=== PATIENT | female | born 1965 | race Caucasian/White ===

== ENCOUNTER → 2017-08-15 | Day surgery (SDC) | payer BC ==
[2017-07-29 07:22] VITALS: Ht 160 cm; Wt 88.6 kg
[~2017-08-15] VITALS: Ht 160 cm; Wt 88.6 kg
[~2017-08-15] MED LIST: ASPI-589 PO; ATROPINE SULFATE 0.1 MG/ML 5ML SYR IV PRN; CEFAZOLIN 2000MG IV PUSH 15 ML IV SCH; CHOL2000 PO; CRS/10 PO; DEXAMETHASONE SOD INJ 4 MG/ML VIAL ONE; EpHEDrine SULFATE INJ 50 MG/ML AMP IV PRN; FENTANYL CITRATE INJ 50 MCG/1 ML 2 ML VIAL IV PRN; FENTANYL CITRATE INJ 50 MCG/1 ML 2 ML VIAL ONE; FEXO1TAB49 PO; FMV500 PO; KETOROLAC TROMETHAMINE 30 MG/ML VIAL IV. PRN; LACTATED RINGER'S 1000ML 1,000 ML IV SCH; LIDOCAINE HCL 2% 2 ML VIAL (20MG/ML) ONE; LIDOCAINE HCL 2% LOCAL 20 ML VIAL ONE; MAGN1TAB19 PO; MELO-83 PO; MIDAZOLAM HCL 1 MG/ML 2ML VIAL ONE; MONT1TAB3 PO; ONDANSETRON INJ 2 MG/ML 2 ML VIAL IV PRN; ONDANSETRON INJ 2 MG/ML 2 ML VIAL ONE; PROB1TAB16 PO; PROPOFOL IV EMULSION 10 MG/ML 20 ML VIAL IV ONE; SODIUM CHLORIDE 0.9% 1000ML 1,000 ML IV SCH; SPIR50TA2 PO; SULF800T23 PO; TRAM-10 PO; TRAMADOL HCL 50 MG TAB PO PRN
--- NOTE | 2017-08-15 09:36 | History & Physical Bridge Note ---
H&P Re-Evaluation Bridge Note: I have examined the patient, reviewed the History & Physical and in the interval since the performance of the History & Physical I have noted the following changes of clinical significance: No changes noted
--- NOTE | 2017-08-15 11:02 | [facility] Post Operative Brief Note ---
Immediate Operative Summary Operative Date Aug 15, 2017. Pre-Operative Diagnosis Left Carpal Tunnel Syndrome; Right Long Trigger Finger Post-Operative Diagnosis Same Procedure(s) Performed Left Carpal Tunnel Release; Right Long Trigger Finger Release Surgeon Dr. Cesar Security Architect Surgeon(s) Samy Lindsey PA-C Estimated Blood Loss 5cc Findings Consistent with Post-Op Diagnosis Specimens None Drains None Anesthesia Type MAC Complication(s) none Disposition Disposition: Recovery Room / PACU
[2017-08-15 11:22] VITALS: TEMP 36.2
--- NOTE | 2017-08-15 11:30 | Discharge Instructions-SurgCtr ---
Discharge Instructions Date of Service Aug 15, 2017. Visit Reason for Visit: Left Carpal Tunnel Syndrome; Right Long Trigger Fi Discharge Discharge Diagnosis / Problem: SAME ABOVE Discharge Goals Goal(s): Decrease discomfort, Improve function Medications Stopped Medications Name(s): Meloxicam, last dose 08/05/17, asprin 81mg daily, last dose 08/14/17 Restart Stopped Medication(s): MAY RESTART 08/16/2017 Activity Recommendations Activity Limitations: as noted below Shower/Bathe: may shower/bathe in 3 days Anesthesia . Post Anesthesia Instructions: If you have had General Anesthesia or IV Sedation: * Do not drive today. * Resume driving when surgeon permits. * Do not make important decisions or sign legal documents today. * Call surgeon for: 1. Temperature elevations greater than 101 degrees F. 2. Uncontrollable pain. 3. Excessive bleeding. 4. Persistent nausea and vomiting. 5. Medication intolerance (nausea, vomiting or rash). * For nausea and vomiting use only clear liquids such as: tea, soda, bouillon until nausea subsides, then gradually increase diet as tolerated. * If you have any concerns or questions, call your surgeon's office. If physician is unavailable and it is an emergency, call 911 or go to the nearest emergency room. . Instructions / Follow-Up Instructions / Follow-Up MEDICATIONS: * Resume previous medications unless instructed otherwise by your surgeon. * Always take pain medication on a full stomach or with food to avoid upset stomach. * Do not drink alcohol or drive while taking narcotics. * Ibuprofen or Tylenol may be taken if narcotic not needed. SPECIAL CARE INSTRUCTIONS: __ None _X_ Keep extremity elevated and iced x 48 hours; apply ice 20-30 minutes 8-10 times/day. May remove at night. __ Sling __24 hrs/day __ Remove at night __ Shoulder Immobilizer __ 24 hrs/day __ Remove at night _X_ Dressing __ Maintain until seen in office, may shower with plastic over site _X_ Remove dressings in 72 hours and then may shower _X_ Cover incisions with band-aids after showering __ Do not remove steri-strips Call physician if chills or temperature rises above 102 degrees or pain unrelieved by prescribed pain medications at . . Diet Recommendations Home Diet: no limitations Fluid Restriction: None Procedures Procedures Performed: Left Carpal Tunnel Release; Right Long Trigger Finger Release Pending Studies Studies pending at discharge: no Work Instructions Return To Work: after follow-up Medical Emergencies . Who to Call and When: Medical Emergencies: If at any time you feel your situation is an emergency, please call 911 immediately. . Non-Emergent Contact Non-Emergency issues call your: Primary Care Provider Call Non-Emergent contact if: you have a fever, temperature is above 101.5 . . "Provider Documentation" section prepared by Hiren Lindsey. .
[2017-08-15 11:48] VITALS: BP 168/88; PULSE 78; O2SAT 98
--- NOTE | 2017-08-15 11:52 | Anesthesia Progress Nt - [facility] ---
Anesthesia Post Op Note Date & Time Aug 15, 2017 at 11:52 Vital Signs Pain Intensity: 0 Vital Signs Past 12 Hours Date Time Temp Pulse Resp B/P (MAP) Pulse Ox O2 Delivery O2 Flow Rate FiO2 08/15/17 11:22 36.2 91 12 166/85 (112) 95 Room Air 08/15/17 09:56 36.6 81 18 159/80 (106) 97 Room Air Notes Mental Status: alert / awake / arousable, participated in evaluation Pt Amnestic to Procedure: Yes Nausea / Vomiting: adequately controlled Pain: adequately controlled Airway Patency, RR, SpO2: stable & adequate BP & HR: stable & adequate Hydration State: stable & adequate Anesthetic Complications: no major complications apparent
--- NOTE | 2017-08-15 16:22 | OPERATIVE REPORT ---
DATE OF OPERATION: 08/15/2017 PREOPERATIVE DIAGNOSIS: Carpal tunnel syndrome of the left wrist and triggering of the right long finger. POSTOPERATIVE DIAGNOSIS: Same. PROCEDURE: Left open carpal tunnel release and a right trigger finger release. SURGEON: Dr. Say Cesar. SPLIT LEATHER DEPARTMENT SUPERVISOR: Mayur Lindsey PA-C, whose assistance was necessary for retraction and closure. ANESTHESIA: Local with sedation. COMPLICATIONS: None. CONDITION: Stable to PACU. INDICATIONS: Jami is a pleasant 51-year-old female who is complaining of numbness in her left hand and triggering of her right long finger. EMG and clinical examination were diagnostic for carpal tunnel syndrome of the left wrist. Clinical examination was diagnostic for a trigger finger of the right long finger. After failing conservative treatment, she elected to undergo releases. OPERATION AND FINDINGS: On 08/15/2017 she arrived at [facility] for the above procedure. She was seen in preoperative holding area and the operative extremity was identified and signed. She was given a preoperative antibiotic, taken back to the operating room, laid on the table in supine position and given basic sedation. Both hands were then prepped and draped in sterile fashion. Time-out was done and the patient's operative extremity was properly identified. The carpal tunnel was done first. A longitudinal incision was made directly over the transverse carpal ligament. Dissection was taken down through the fascia with care not to disrupt the palmar cutaneous branch or the motor branch of the median nerve. The transverse carpal ligament was easily identified. A knife and tenotomy scissors were used to completely release the transverse carpal ligament. Complete resection was checked both proximally and distally. The wound was then irrigated, closed with 4-0 nylon suture. She was then placed in a soft dressing. Attention was then turned to the trigger finger on the left hand. A longitudinal incision was made directly over the A1 adriano. Dissection was taken down through the fascia with care not to disrupt the neurovascular structures. The A1 adriano was easily visualized. A knife and tenotomy scissors were then used to completely release the A1 adriano. The tendon was pulled out of the wound to ensure complete resection. The wound was then irrigated, closed with 4-0 nylon suture. She was placed in a soft dressing and taken to the post-anesthesia care unit in stable condition. She tolerated the procedure well. I attest to the content of the Intraoperative Record and any orders documented therein. Any exception s are noted below.
== END | disposition home or self-care (01) ==
LOC: X.SURG 09:40
PROVIDERS: ATTEND Orthopaedic Surgery
DX: G56.02 Carpal tunnel syndrome, left upper limb (principal); M65.331 Trigger finger, right middle finger; I34.1 Nonrheumatic mitral (valve) prolapse; E78.00 Pure hypercholesterolemia, unspecified; G62.9 Polyneuropathy, unspecified; Z82.49 Family history of ischemic heart disease and other diseases of the circulatory system; Z82.3 Family history of stroke; Z83.3 Family history of diabetes mellitus

== ENCOUNTER 2021-06-08 11:39 | Inpatient (IN) ==
[2021-06-08 12:24] LABS: Hematocrit (blood only) 47.6 % (37-47); Hemoglobin 15.9 g/dL (12.0-16.0); Mean Corpuscular Hemoglobin 31.9 pg (25-34); Mean Corpuscular Hgb Conc 33.4 g/dL (32-36); Mean Corpuscular Volume 95.6 fL (80-100); Mean Platelet Volume 10.4 fL (7.4-10.4); Platelet Count 254 K/uL (130-400); RDW Coefficient of Variation 12.9 % (11.5-14.5); Red Blood Count 4.98 M/uL (4.2-5.4); White Blood Count 9.98 K/uL (4.8-10.8)
[2021-06-08 12:45] LABS: BUN Creatinine Ratio 16.3 (10-20); Calcium 9.6 mg/dl (8.5-10.1); Est GFR (African American) 74.7 ml/min; Est GFR (Non-African American) 64.5 ml/min; Potassium 3.8 mmol/L (3.5-5.1)
[2021-06-08] MEDS ORDERED: ACETAMINOPHEN 1,000 MG/100 ML VIAL IV STA (12:45)
[2021-06-08] MEDS ORDERED: SODIUM CHLORIDE 0.9% 1000ML 1,000 ML IV ONE ×2 (12:45→15:13)
--- NOTE | 2021-06-08 12:47 | Emergency Department Note ---
History of Present Illness General Chief complaint: Illness Stated complaint: COVID +,BACK PAIN,OUT OF IT TODAY Time Seen by Provider: 06/08/21 12:35 Source: patient Mode of arrival: ambulatory Limitations: no limitations History of Present Illness Provider complaint: Back pain, chills Onset (ago): day(s) 1 Maximum Pain Intensity: 10 Exacerbated By: + none Associated symptoms: + cough, + fever/chills, + headaches, + loss of appetite, + malaise and + nausea/vomiting; no chest pain or no shortness of breath Treatments prior to arrival: none This is a 55-year-old female presents emergency department complaining of back pain and chills. Patient states she started to develop back pain and shaking chills overnight. She denies any accompanying fevers. Patient states she has had a cough since Saturday and initially thought it was a side effect of her blood pressure medication. Patient states she recently started lisinopril 2 weeks ago. Patient states her son tested positive for Covid on Saturday. She took a home test today and was positive also. Patient states she did have accompanying nausea and vomiting. States her cough is minimally productive and denies overt chest pain or shortness of breath. Patient states she does have some lower abdominal pain. Patient states she has previously had a kidney infection and had significant back pain with that. Patient states she is been unable to find a comfortable position regarding her pain. No radiation of the pain into her hips, buttock, or lower extremity. Patient denies noting any change in her urine recently to suggest an evolving urinary tract infection. Patient states she did have some mild diarrhea today. Pt seen during a time of high acuity and national emergency pandemic while wearing PPE. Home Medications Medication Instructions Recorded Confirmed Type aspirin 81 mg tablet,delayed 81 mg PO DAILY 02/13/21 06/08/21 History release (Adult Low Dose Aspirin) coenzyme Q10 75 mg capsule (Ultra 75 mg PO DAILY 02/13/21 06/08/21 History CoQ10) fexofenadine 180 mg tablet 180 mg PO DAILY 02/13/21 06/08/21 History (Adenike Allergy) magnesium hydroxide 400 mg (170 mg 400 mg PO DAILY 02/13/21 06/08/21 History magnesium) chewable tablet meloxicam 15 mg tablet (Mobic) 15 mg PO DAILY 02/13/21 06/08/21 History metformin 500 mg tablet 500 mg PO DAILY 02/13/21 06/08/21 History pravastatin 20 mg tablet 20 mg PO DAILY 02/13/21 06/08/21 History spironolactone 25 mg tablet 25 mg PO DAILY 02/13/21 06/08/21 History cholecalciferol (vitamin D3) 25 25 mcg PO DAILY 06/08/21 06/08/21 History mcg (1,000 unit) capsule (Vitamin D3) famciclovir 250 mg tablet 250 mg PO BID 06/08/21 06/08/21 History lisinopril 2.5 mg tablet 2.5 mg PO DAILY 06/08/21 06/08/21 History losartan 25 mg tablet 25 mg PO DAILY 06/08/21 06/08/21 History Allergies Allergy/AdvReac Type Severity Reaction Status Date / Time codeine AdvReac Intermediate VOMITING Verified 06/08/21 14:57 hydrocodone AdvReac Unknown NAUSEA Verified 06/08/21 15:04 Past Med/Surg History Social History Smoking Status: Never smoker Hx Alcohol Use: No Hx Substance Use: No Preferred Language: [place] Communication Ability: Effective Passenger Service Manager Required: No Beliefs That Will Affect Care: None Current Living Situation: Spouse Feels Safe at Home: Yes Assistive Devices: None Review of Systems A total of 10 systems reviewed and were otherwise negative All systems reviewed & are unremarkable except as noted in HPI & below Physical Exam Vital Signs Vital Signs - 24 hr 06/08/21 11:46 06/08/21 15:53 Temperature 36.3 C L 37.7 C H Temperature Source Temporal Artery Scan Oral Pulse Rate 71 Pulse Rate [Apical] 120 H Respiratory Rate 20 26 H Respiratory Effort / Characteristics Non-Labored Spontaneous Respiratory Depth Normal Respiratory Pattern Regular Blood Pressure 190/102 H Blood Pressure [Left Arm] 143/68 H Blood Pressure Mean 131 Blood Pressure Mean [Left Arm] 93 Pulse Oximetry 99 98 Oxygen Delivery Method Room Air Room Air Sepsis Recent Fever Within 48 Hours No Sepsis New/Unexplained Change in Mental Status No Sepsis Action Taken by Nursing No Action Required GENERAL: alert, ill appearing, well nourished, no distress, non-toxic, obvious rigors EYE EXAM: normal conjunctiva, PERRL and EOM's grossly intact OROPHARYNX: no exudate, no erythema, lips, buccal mucosa, and tongue normal and mucous membranes are dry NECK: supple, no nuchal rigidity, no adenopathy, non-tender LUNGS: Clear to auscultation. Normal chest wall mechanics, no w/r/r HEART: no murmurs, S1 normal and S2 normal ABDOMEN: abdomen soft, non-tender, normo-active bowel sounds, no masses, no rebound or guarding. BACK: Back is symmetrical on inspection and there is no deformity, no midline tenderness, no CVA tenderness. Pain to right lateral low back. SKIN: no rashes and no bruising UPPER EXTREMITIES: upper extremities are grossly normal. FROM, nml pulses b/l. LOWER EXTREMITIES: No pitting edema. FROM, nml pulses b/l. NEURO EXAM: Normal sensorium, cranial nerves II-XII grossly intact, normal speech, no gross weakness of arms, no gross weakness of legs. Gross sensation intact. Course Course 1522: Pt updated on results. HR 123, BP stable. Still having pain. 1602: DIscussed with Dr. Mcnamara. 1622: Discussed with Dr. Prabhakar. 1644: Updated pt's Maxim via phone per patient request. [phone] Administered Medications Enoxaparin Sodium (Enoxaparin Inj 30 Mg/0.3 Ml Syr) 30 mg SQ Q24H [facility] Stop: 07/08/21 17:59 Last Admin: 06/08/21 18:54 Dose: 30 mg Documented by: [id number] Hydromorphone HCl (Hydromorphone Inj 0.5 Mg/0.5 Ml Syr) 0.5 mg IV Q2H PRN PRN Reason: Moderate Pain (4,5,6) on NRS Stop: 06/22/21 17:30 Last Admin: 06/10/21 01:51 Dose: 0.5 mg Documented by: [id number] Admin: 06/09/21 06:52 Dose: 0.5 mg Documented by: [id number] Admin: 06/08/21 21:08 Dose: 0.5 mg Documented by: [id number] Parenteral Electrolytes (Normosol-R) 1,000 mls @ 200 mls/hr IV .Q5H [facility] Stop: 07/08/21 16:59 Last Admin: 06/10/21 04:36 Dose: 200 mls/hr Documented by: [id number] Infusion: 06/10/21 04:08 Dose: 200 mls/hr Documented by: [id number] Admin: 06/10/21 01:55 Dose: Not Given Documented by: [id number] Admin: 06/09/21 23:08 Dose: 200 mls/hr Documented by: [id number] Infusion: 06/09/21 22:23 Dose: 200 mls/hr Documented by: [id number] Admin: 06/09/21 17:23 Dose: 200 mls/hr Documented by: [id number] Infusion: 06/09/21 17:23 Dose: 200 mls/hr Documented by: [id number] Admin: 06/09/21 12:56 Dose: 200 mls/hr Documented by: [id number] Infusion: 06/09/21 12:56 Dose: 0 mls/hr Documented by: [id number] Admin: 06/09/21 05:19 Dose: 125 mls/hr Documented by: [id number] Infusion: 06/09/21 05:08 Dose: 125 mls/hr Documented by: [id number] Admin: 06/08/21 21:08 Dose: 125 mls/hr Documented by: [id number] Acetaminophen (Ofirmev) 1,000 mg in 100 mls @ 400 mls/hr IV Q8H PRN PRN Reason: Fever/Mild Pain (Pain 1,2,3) Stop: 06/11/21 17:30 Last Infusion: 06/10/21 02:47 Dose: 0 mls/hr Documented by: [id number] Admin: 06/10/21 02:28 Dose: 400 mls/hr Documented by: [id number] Infusion: 06/09/21 19:30 Dose: 0 mls/hr Documented by: [id number] Admin: 06/09/21 18:51 Dose: 400 mls/hr Documented by: [id number] Ceftriaxone Sodium 2,000 mg/ (Dextrose) 70 mls @ 100 mls/hr IV Q24H [facility]; Protocol Stop: 06/17/21 16:41 Last Infusion: 06/09/21 18:11 Dose: 0 mls/hr Documented by: [id number] Admin: 06/09/21 17:24 Dose: 100 mls/hr Documented by: [id number] Lisinopril (Lisinopril 2.5 Mg Tab) 2.5 mg PO DAILY [facility] Stop: 07/09/21 08:59 Last Admin: 06/09/21 08:15 Dose: Not Given Documented by: [id number] Losartan Potassium (Losartan Potassium 25 Mg Tab) 25 mg PO DAILY [facility] Stop: 07/09/21 08:59 Last Admin: 06/09/21 08:15 Dose: Not Given Documented by: [id number] Pravastatin Sodium (Pravastatin Sod 20 Mg Tab) 20 mg PO DAILY [facility] Stop: 07/09/21 08:59 Last Admin: 06/09/21 08:15 Dose: 20 mg Documented by: [id number] Discontinued Medications Fentanyl Citrate (Fentanyl Citrate 100 Mcg/2 Ml Vial) 50 mcg IV Q15M PRN PRN Reason: Pain Stop: 06/22/21 15:23 Last Admin: 06/08/21 17:02 Dose: 50 mcg Documented by: [id number] Acetaminophen (Ofirmev) 1,000 mg in 100 mls @ 400 mls/hr IV NOW STA Stop: 06/08/21 12:59 Last Infusion: 06/08/21 16:43 Dose: 0 mls/hr Documented by: [id number] Admin: 06/08/21 12:58 Dose: 400 mls/hr Documented by: [id number] Sodium Chloride (Nss 1000ml) 1,000 mls @ 999 mls/hr IV .Q1H1M ONE Stop: 06/08/21 13:45 Last Infusion: 06/08/21 16:43 Dose: 0 mls/hr Documented by: [id number] Admin: 06/08/21 12:58 Dose: 999 mls/hr Documented by: [id number] Sodium Chloride (Nss 1000ml) 1,000 mls @ 999 mls/hr IV .Q1H1M ONE Stop: 06/08/21 16:13 Last Infusion: 06/08/21 16:59 Dose: 0 mls/hr Documented by: [id number] Admin: 06/08/21 15:56 Dose: 999 mls/hr Documented by: [id number] Ceftriaxone Sodium (Rocephin) 2,000 mg in 70 mls @ 140 mls/hr IV NOW STA Stop: 06/08/21 15:51 Last Infusion: 06/08/21 16:43 Dose: 0 mls/hr Documented by: [id number] Admin: 06/08/21 15:56 Dose: 140 mls/hr Documented by: [id number] Parenteral Electrolytes (Normosol-R) 1,000 mls @ 999 mls/hr IV .Q1H1M ONE Stop: 06/08/21 17:56 Last Infusion: 06/08/21 20:08 Dose: 0 mls/hr Documented by: [id number] Admin: 06/08/21 18:54 Dose: 999 mls/hr Documented by: [id number] Parenteral Electrolytes (Normosol-R) 500 mls @ 999 mls/hr IV .Q31M ONE Stop: 06/08/21 19:22 Last Infusion: 06/08/21 20:44 Dose: 0 mls/hr Documented by: [id number] Admin: 06/08/21 20:02 Dose: 999 mls/hr Documented by: [id number] Parenteral Electrolytes (Normosol-R) 500 mls @ 999 mls/hr IV .Q31M ONE Stop: 06/08/21 19:53 Last Infusion: 06/08/21 20:44 Dose: 0 mls/hr Documented by: [id number] Admin: 06/08/21 20:02 Dose: 999 mls/hr Documented by: [id number] Parenteral Electrolytes (Normosol-R) 1,000 mls @ 999 mls/hr IV .Q1H1M ONE Stop: 06/09/21 10:07 Last Infusion: 06/09/21 10:31 Dose: 0 mls/hr Documented by: [id number] Admin: 06/09/21 09:28 Dose: 999 mls/hr Documented by: [id number] Sodium Chloride (Nss 1000ml) 500 mls @ 999 mls/hr IV .Q31M ONE Stop: 06/09/21 09:40 Last Admin: 06/09/21 09:25 Dose: Not Given Documented by: [id number] Magnesium Sulfate/Dextrose (Magnesium Sulfate / D5w) 1 gm in 100 mls @ 50 mls/hr IV Q2H [facility] Stop: 06/09/21 13:44 Last Infusion: 06/09/21 15:01 Dose: 0 mls/hr Documented by: [id number] Admin: 06/09/21 12:57 Dose: 50 mls/hr Documented by: [id number] Infusion: 06/09/21 11:57 Dose: 0 mls/hr Documented by: [id number] Admin: 06/09/21 09:57 Dose: 50 mls/hr Documented by: [id number] Ketorolac Tromethamine (Ketorolac Tromethamine 15 Mg/Ml Vial) 10 mg IV NOW ONE Stop: 06/08/21 15:25 Last Admin: 06/08/21 15:56 Dose: 10 mg Documented by: [id number] Potassium Chloride (Potassium Chloride Crtab 20 Meq Tabcr) 40 meq PO NOW STA Stop: 06/09/21 09:11 Last Admin: 06/09/21 09:56 Dose: 40 meq Documented by: [id number] Medical Decision Making Differential Diagnosis Differential diagnoses includes but is not limited to lumbar radiculopathy, muscle strain, facture, cauda equina, mass, disc herniation, uti, kidney stone, pyelonephritis Medical Records Attestation: I reviewed the patient's medical records. Home Medications Current Medication List: was personally reviewed by me Laboratory Data Attestation: I reviewed the patient's lab results. Result diagrams: 06/09/21 15:00 06/09/21 15:00 Lab Results 06/08/21 06/08/21 06/08/21 Range/Units 12:00 12:00 12:00 WBC 9.98 (4.8-10.8) K/uL RBC 4.98 (4.2-5.4) M/uL Hgb 15.9 (12.0-16.0) g/dL Hct 47.6 H (37-47) % MCV 95.6 (80-100) fL MCH 31.9 (25-34) pg MCHC 33.4 (32-36) g/dL RDW Std Deviation 45.0 (36.4-46.3) fL RDW Coeff of Christina 12.9 (11.5-14.5) % Plt Count 254 (130-400) K/uL MPV 10.4 (7.4-10.4) fL Sodium 139 (136-145) mmol/L Potassium 3.8 (3.5-5.1) mmol/L Chloride 102 (98-107) mmol/L Carbon Dioxide 27 (21-32) mmol/L Anion Gap 10 (3-11) BUN 16 (6-23) mg/dl Creatinine 0.98 (0.6-1.2) mg/dl Est Cr Clr Drug Dosing 73.0 ml/min Est GFR ( Amer) 74.7 ml/min Est GFR (Non-Af Amer) 64.5 ml/min BUN/Creatinine Ratio 16.3 (10-20) Glucose 155 H (70-99(Fasting)) mg/dl Lactate (0.4-2.0) mmol/L Calcium 9.6 (8.5-10.1) mg/dl Total Bilirubin 1.0 (0.2-1.0) mg/dl Direct Bilirubin 0.2 (0-0.2) mg/dl AST 29 (13-39) U/L ALT 47 (7-52) U/L Alkaline Phosphatase 86 (34-104) U/L Total Protein 7.6 (6.0-8.3) gm/dl Albumin 4.9 (3.4-5.0) gm/dl Procalcitonin (0-0.5) ng/ml Urine Color Urine Appearance (Clear) Urine pH (4.5-7.5) Ur Specific [place] (1.000-1.030) Urine Protein (Negative) Urine Glucose (UA) (Negative) Urine Ketones (Negative) Urine Blood (Negative) Urine Nitrite (Negative) Urine Bilirubin (Negative) Urine Urobilinogen (Negative) Ur Leukocyte Esterase (Negative) Urine WBC (Auto) (0-5) /hpf Urine RBC (Auto) (0-4) /hpf U Hyaline Cast (Auto) (0-5) /lpf U Epithel Cells (Auto) (0-5) /lpf Urine Bacteria (Auto) (Negative) SARS-CoV-2, RNA, NAAT (NEGATIVE) 06/08/21 06/08/21 06/08/21 Range/Units 12:00 13:00 14:10 WBC (4.8-10.8) K/uL RBC (4.2-5.4) M/uL Hgb (12.0-16.0) g/dL Hct (37-47) % MCV (80-100) fL MCH (25-34) pg MCHC (32-36) g/dL RDW Std Deviation (36.4-46.3) fL RDW Coeff of Christina (11.5-14.5) % Plt Count (130-400) K/uL MPV (7.4-10.4) fL Sodium (136-145) mmol/L Potassium (3.5-5.1) mmol/L Chloride (98-107) mmol/L Carbon Dioxide (21-32) mmol/L Anion Gap (3-11) BUN (6-23) mg/dl Creatinine (0.6-1.2) mg/dl Est Cr Clr Drug Dosing ml/min Est GFR ( Amer) ml/min Est GFR (Non-Af Amer) ml/min BUN/Creatinine Ratio (10-20) Glucose (70-99(Fasting)) mg/dl Lactate 3.1 H* (0.4-2.0) mmol/L Calcium (8.5-10.1) mg/dl Total Bilirubin (0.2-1.0) mg/dl Direct Bilirubin (0-0.2) mg/dl AST (13-39) U/L ALT (7-52) U/L Alkaline Phosphatase (34-104) U/L Total Protein (6.0-8.3) gm/dl Albumin (3.4-5.0) gm/dl Procalcitonin < 0.05 (0-0.5) ng/ml Urine Color Yellow Urine Appearance Clear (Clear) Urine pH 5.5 (4.5-7.5) Ur Specific [place] 1.011 (1.000-1.030) Urine Protein Negative (Negative) Urine Glucose (UA) Negative (Negative) Urine Ketones Trace H (Negative) Urine Blood 1+ H (Negative) Urine Nitrite Negative (Negative) Urine Bilirubin Negative (Negative) Urine Urobilinogen Negative (Negative) Ur Leukocyte Esterase Negative (Negative) Urine WBC (Auto) 1-5 (0-5) /hpf Urine RBC (Auto) 10-30 H (0-4) /hpf U Hyaline Cast (Auto) 1-5 (0-5) /lpf U Epithel Cells (Auto) 20-30 H (0-5) /lpf Urine Bacteria (Auto) Negative (Negative) SARS-CoV-2, RNA, NAAT (NEGATIVE) 06/08/21 06/08/21 Range/Units 15:03 16:00 WBC (4.8-10.8) K/uL RBC (4.2-5.4) M/uL Hgb (12.0-16.0) g/dL Hct (37-47) % MCV (80-100) fL MCH (25-34) pg MCHC (32-36) g/dL RDW Std Deviation (36.4-46.3) fL RDW Coeff of Christina (11.5-14.5) % Plt Count (130-400) K/uL MPV (7.4-10.4) fL Sodium (136-145) mmol/L Potassium (3.5-5.1) mmol/L Chloride (98-107) mmol/L Carbon Dioxide (21-32) mmol/L Anion Gap (3-11) BUN (6-23) mg/dl Creatinine (0.6-1.2) mg/dl Est Cr Clr Drug Dosing ml/min Est GFR ( Amer) ml/min Est GFR (Non-Af Amer) ml/min BUN/Creatinine Ratio (10-20) Glucose (70-99(Fasting)) mg/dl Lactate 3.5 H* (0.4-2.0) mmol/L Calcium (8.5-10.1) mg/dl Total Bilirubin (0.2-1.0) mg/dl Direct Bilirubin (0-0.2) mg/dl AST (13-39) U/L ALT (7-52) U/L Alkaline Phosphatase (34-104) U/L Total Protein (6.0-8.3) gm/dl Albumin (3.4-5.0) gm/dl Procalcitonin (0-0.5) ng/ml Urine Color Urine Appearance (Clear) Urine pH (4.5-7.5) Ur Specific [place] (1.000-1.030) Urine Protein (Negative) Urine Glucose (UA) (Negative) Urine Ketones (Negative) Urine Blood (Negative) Urine Nitrite (Negative) Urine Bilirubin (Negative) Urine Urobilinogen (Negative) Ur Leukocyte Esterase (Negative) Urine WBC (Auto) (0-5) /hpf Urine RBC (Auto) (0-4) /hpf U Hyaline Cast (Auto) (0-5) /lpf U Epithel Cells (Auto) (0-5) /lpf Urine Bacteria (Auto) (Negative) SARS-CoV-2, RNA, NAAT POSITIVE A* (NEGATIVE) Imaging Data Radiologist's Impression: Abdomen/Pelvis CT 06/08/21 12:[address] WITHOUT CONTRAST CT DOSE: 1041.19 mGycm HISTORY: Acute right-sided flank pain with fever and chills right flank pain, f/c TECHNIQUE: Multiaxial CT images of the abdomen and pelvis were performed without contrast. A dose lowering technique was utilized adhering to the principles of ALARA. COMPARISON STUDY: Lumbar spine MRI 05/07/2016 FINDINGS: The imaged inferior cardiac chambers are unremarkable. Clear lung bases. There is no pneumatosis or pneumoperitoneum. The unenhanced spleen, mildly atrophic pancreas, gallbladder and adrenal glands are unremarkable. Hepatic steatosis no hepatic mass lesion identified. Normal-appearing left kidney. 2 mm nonobstructing calculus of the interpolar right kidney. Moderate right-sided hydroureteronephrosis with associated perinephric and periureteral stranding secondary to an obstructing 4 x 3 x 4 mm calculus of the distal right ureter just proximal to the ureterovesicular junction. Decompressed urinary bladder with mild wall thickening. Hysterectomy. No adnexal mass lesion. Aorta and IVC are unremarkable. No adenopathy. No bowel obstruction or bowel wall thickening. Mild fecal retention of the rectum. Mild colonic diverticulosis. No ascites. Appendectomy. Mild diastases recti. Unremarkable soft tissues. There is no acute fracture. Mild lumbar levoscoliosis. Degenerative changes of the spine. IMPRESSION: 1. Moderate right-sided hydroureteronephrosis secondary to an obstructing 4 mm calculus of the distal right ureter. Perinephric and periureteral edema is likely reactive. Correlate with urinalysis to exclude superimposed infection. 2. 2 mm nonobstructing right renal calculus. 3. Hepatic steatosis. ACT 112: Negative or not required by law. The above report was generated using voice recognition software. It may contain grammatical, syntax or spelling errors. Electronically signed by: Carlos Chavez M.D. 06/08/2021 3:10 PM ECG Data Attestation: I personally reviewed and interpreted this ECG as follows: Indication: + weakness Rate (beats per minute): 67 Rhythm: + normal sinus ECG Intervals/blocks: + Normal QRS and + Normal QT ECG Mabie: + Normal ECG ST segments: + Normal ST segments MDM Narrative This is a 55-year-old female presents emergency department complaining of back pain as well as recent Covid infection. Patient with no prior low back/spine history, no recent trauma. Patient initially thought pain was related to evolving Covid symptoms. Patient does have prior history of kidney infection and his pain worsened and she became concerned for concurrent infection as the pain was similar. Labs drawn and sent, patient sent for CT imaging. Patient had obvious rigors on my initial exam despite no fever or tachycardia. Patient given IV Rocephin as a precaution and started on IV fluids. Patient's initial lactic acid was elevated, unfortunately a repeat after 2 L of IV fluids was elevated further. Procalcitonin negative, no leukocytosis. Blood cultures were sent and pending. Patient's heart rate continued to elevate while here as did her temperature. Patient with some SIRS criteria and I am concerned for evolving sepsis given likely urinary source as well as Covid. CT revealed ureterolithiasis although based on size this may be able to be spontaneously passed. Case discussed with hospitalist as a precaution for additional evaluation and management. I feel patient is at additional risk for occult infection and complication due to her history of diabetes. Patient made aware of all results and verbalized understanding. I did contact the patient's via phone at her request and updated him also. An order was placed for continuous cardiac monitoring. The monitor shows a rate of _122_ with _sinus tachycardia_ rhythm. Impression & Plan Back pain, Ureterolithiasis, Lactic acid blood increased, COVID-19 virus infection, Tachycardia Discharge Plan Visit Data Chief Complaint: Illness Stated Complaint: COVID +,BACK PAIN,OUT OF IT TODAY ED Provider: Rita Boykin Discharge Problem: Back pain, Ureterolithiasis, Lactic acid blood increased, COVID-19 virus infection, Tachycardia Patient Disposition: Admitted As Inpatient Discharge Instructions Interventions: ED Discharge Assessment Last Done: 06/08/21 17:08 Discharge Problem: Back pain Qualifiers: Back pain location: low back pain Chronicity: acute Back pain laterality: right Sciatica presence: without sciatica Qualified Code(s): M54.50 - Low back pain, unspecified
[2021-06-08 13:55] LABS: Albumin Level 4.9 gm/dl (3.4-5.0); Bilirubin Direct 0.2 mg/dl (0-0.2); Total Protein 7.6 gm/dl (6.0-8.3)
[2021-06-08 14:55] LABS: Appearance Urine Clear (Clear); Bacteria Urine Automated Negative (Negative); Bilirubin Urine Negative (Negative); Blood Urine 1+ (Negative); Color Urine Yellow; Epithelial Cell Urine Auto 20-30 /lpf (0-5); Glucose Urine UA Negative (Negative); Ketones Urine Trace (Negative); Leukocyte Esterase Urine Negative (Negative); Nitrite Urine Negative (Negative); Protein Urine Negative (Negative); Specific Gravity Urine 1.011 (1.000-1.030); Urobilinogen Urine Negative (Negative); pH Urine 5.5 (4.5-7.5)
--- NOTE | 2021-06-08 15:11 | CT Scan Report ---
ABDOMEN AND PELVIS CT WITHOUT CONTRAST CT DOSE: 1041.19 mGycm HISTORY: Acute right-sided flank pain with fever and chills right flank pain, f/c TECHNIQUE: Multiaxial CT images of the abdomen and pelvis were performed without contrast. A dose lo wering technique was utilized adhering to the principles of ALARA. COMPARISON STUDY: Lumbar spine MRI 05/07/2016 FINDINGS: The imaged inferior cardiac chambers are unremarkable. Clear lung bases. There is no pneumatosis or p neumoperitoneum. The unenhanced spleen, mildly atrophic pancreas, gallbladder and adrenal glands are unremarkable. Hepatic steatosis no hepatic mass lesion identified. Normal-appearing left kidney. 2 mm nonobstructing calculus of the interpolar right kidney. Moderate r ight-sided hydroureteronephrosis with associated perinephric and periureteral stranding secondary to an obstructing 4 x 3 x 4 mm calculus of the distal right ureter just proximal to the ureterovesicular junction. Decompressed urinary bladder with mild wall thickening. Hysterectomy. No adnexal mass lesi on. Aorta and IVC are unremarkable. No adenopathy. No bowel obstruction or bowel wall thickening. Mild fecal retention of the rectum. Mild colonic diver ticulosis. No ascites. Appendectomy. Mild diastases recti. Unremarkable soft tissues. There is no acu te fracture. Mild lumbar levoscoliosis. Degenerative changes of the spine. IMPRESSION: 1. Moderate right-sided hydroureteronephrosis secondary to an obstructing 4 mm calculus of the distal right ureter. Perinephric and periureteral edema is likely reactive. Correlate with urinalysis to ex clude superimposed infection. 2. 2 mm nonobstructing right renal calculus. 3. Hepatic steatosis. ACT 112: Negative or not required by law. The above report was generated using voice recognition software. It may contain grammatical, syntax o r spelling errors. Electronically signed by: Carlos Chavez M.D. 06/08/2021 3:10 PM
[2021-06-08] MEDS ORDERED: cefTRIAXone SODIUM 2,000 MG/70 ML BAG IV STA (15:22)
[2021-06-08] MEDS ORDERED: KETOROLAC TROMETHAMINE 15 MG/ML VIAL IV ONE (15:24)
[2021-06-08] MEDS ORDERED: fentaNYL citrate 100 MCG/2 ML VIAL IV PRN (15:24)
--- NOTE | 2021-06-08 16:20 | History & Physical Report ---
Date of Service June 08, 2021 Assessment & Plan (1) Diabetes: Plan: Holding metformin Consider sliding scale insulin pending glycemic response to illness (2) Right nephrolithiasis: Plan: Aggressive hydration - 3rd liter in ED Normosol @ 125 or greater Urology consulted --NPO (3) Sepsis: Plan: Repeat lactic acid ordered Rocephin 1 gram q24 hours --Pyelonephritis --aggressive IVF administration (4) Lactic acid blood increased: Plan: Recheck ordered (5) COVID-19 virus infection: Plan: Currently asymptomatic. airborne isolation --admit med-tele History of Present Illness Chief Complaint: Back pain and chills Primary Care Provider: Mario Mccauley Patient is a 55-year-old female with a past medical history of diabetes who has a prior history of kidney infection no history of kidney stones who presents 24- hour history of her increasing fevers and chills. She also has not as normal finding of small cough her son tested positive approximately 2 days ago. She did a home test today which was also positive. She reports that she felt that her heart has been racing over the past 1 to 2 days. She had tea and toast this morning at approximately 5 AM has been nauseated not been able to keep fluids down. Her current pain level is 1 out of 10. She has received approximately 2 L of IV fluids in the emergency department and was started on antibiotics. Allergies Allergy/AdvReac Type Severity Reaction Status Date / Time codeine AdvReac Intermediate VOMITING Verified 06/08/21 14:57 hydrocodone AdvReac Unknown NAUSEA Verified 06/08/21 15:04 Home Medications Medication Instructions Recorded Confirmed Type aspirin 81 mg tablet,delayed 81 mg PO DAILY 02/13/21 06/08/21 History release (Adult Low Dose Aspirin) coenzyme Q10 75 mg capsule (Ultra 75 mg PO DAILY 02/13/21 06/08/21 History CoQ10) fexofenadine 180 mg tablet 180 mg PO DAILY 02/13/21 06/08/21 History (Adenike Allergy) magnesium hydroxide 400 mg (170 mg 400 mg PO DAILY 02/13/21 06/08/21 History magnesium) chewable tablet meloxicam 15 mg tablet (Mobic) 15 mg PO DAILY 02/13/21 06/08/21 History metformin 500 mg tablet 500 mg PO DAILY 02/13/21 06/08/21 History pravastatin 20 mg tablet 20 mg PO DAILY 02/13/21 06/08/21 History spironolactone 25 mg tablet 25 mg PO DAILY 02/13/21 06/08/21 History cholecalciferol (vitamin D3) 25 25 mcg PO DAILY 06/08/21 06/08/21 History mcg (1,000 unit) capsule (Vitamin D3) famciclovir 250 mg tablet 250 mg PO BID 06/08/21 06/08/21 History lisinopril 2.5 mg tablet 2.5 mg PO DAILY 06/08/21 06/08/21 History losartan 25 mg tablet 25 mg PO DAILY 06/08/21 06/08/21 History Past Med/Surg History Social History Smoking Status: Never smoker Feels Safe at Home: Yes Review of Systems Review of Systems: Positive for fevers and chills, no exertional dyspnea no orthopnea no ankle swelling. 10 point review of systems has been reviewed and is otherwise negative. Physical Exam Physical Exam: General: Alert. nontoxic. Skin: Warm, dry, Head: Atraumatic Ears, nose, mouth and throat: airway patent Cardiovascular: Normal peripheral perfusion, tachycardic Respiratory: no respiratory distress Gastrointestinal: Non distended, no hepatosplenomegaly no guarding no rebound Musculoskeletal: No deformity Bedside dispatch officer: Sinus tachycardia Results & Data Results & Data ([facility]) Vital Signs (Past 12 Hours) Vital Signs Temp Pulse Pulse Resp BP BP Pulse Ox 06/08/21 15:53 37.7 C H 120 H 26 H 143/68 H 98 06/08/21 11:46 36.3 C L 71 20 190/102 H 99 Critical Care Results & Data Vital Signs (Past 12 Hours) Vital Signs Temp Pulse Pulse Resp BP BP Pulse Ox 06/08/21 15:53 37.7 C H 120 H 26 H 143/68 H 98 06/08/21 11:46 36.3 C L 71 20 190/102 H 99 Lab & Micro Results (Past 24 Hours) RBC 4.98 M/uL (4.2-5.4) 06/08/21 WBC 9.98 K/uL (4.8-10.8) 06/08/21 Hgb 15.9 g/dL (12.0-16.0) 06/08/21 Hct 47.6 % (37-47) H 06/08/21 MCV 95.6 fL (80-100) 06/08/21 MCH 31.9 pg (25-34) 06/08/21 MCHC 33.4 g/dL (32-36) 06/08/21 RDW Standard Deviation 45.0 fL (36.4-46.3) 06/08/21 RDW Coefficient of Variation 12.9 % (11.5-14.5) 06/08/21 Plt Count 254 K/uL (130-400) 06/08/21 MPV 10.4 fL (7.4-10.4) 06/08/21 Na 139 mmol/L (136-145) 06/08/21 K 3.8 mmol/L (3.5-5.1) 06/08/21 Cl 102 mmol/L (98-107) 06/08/21 CO2 27 mmol/L (21-32) 06/08/21 Anion Gap 10 (3-11) 06/08/21 BUN 16 mg/dl (6-23) 06/08/21 Creatinine 0.98 mg/dl (0.6-1.2) 06/08/21 Estimated GFR ( Amer) 74.7 ml/min 06/08/21 Estimated GFR (Non-Af Amer) 64.5 ml/min 06/08/21 BUN/Creatinine Ratio 16.3 (10-20) 06/08/21 Glu 155 mg/dl (70-99(Fasting)) H 06/08/21 Ca 9.6 mg/dl (8.5-10.1) 06/08/21 Total Bilirubin 1.0 mg/dl (0.2-1.0) 06/08/21 Direct Bilirubin 0.2 mg/dl (0-0.2) 06/08/21 AST 29 U/L (13-39) 06/08/21 ALT 47 U/L (7-52) 06/08/21 Alkaline Phosphatase 86 U/L (34-104) 06/08/21 TP 7.6 gm/dl (6.0-8.3) 06/08/21 Albumin 4.9 gm/dl (3.4-5.0) 06/08/21 Calcium Level 9.6 mg/dl (8.5-10.1) 06/08/21 12:00 06/08/21 Diagnostic Findings (Past 24 Hours) Abdomen/Pelvis CT 06/08/21 12:[address] WITHOUT CONTRAST CT DOSE: 1041.19 mGycm HISTORY: Acute right-sided flank pain with fever and chills right flank pain, f/c TECHNIQUE: Multiaxial CT images of the abdomen and pelvis were performed without contrast. A dose lowering technique was utilized adhering to the principles of ALARA. COMPARISON STUDY: Lumbar spine MRI 05/07/2016 FINDINGS: The imaged inferior cardiac chambers are unremarkable. Clear lung bases. There is no pneumatosis or pneumoperitoneum. The unenhanced spleen, mildly atrophic pancreas, gallbladder and adrenal glands are unremarkable. Hepatic steatosis no hepatic mass lesion identified. Normal-appearing left kidney. 2 mm nonobstructing calculus of the interpolar right kidney. Moderate right-sided hydroureteronephrosis with associated perinephric and periureteral stranding secondary to an obstructing 4 x 3 x 4 mm calculus of the distal right ureter just proximal to the ureterovesicular junction. Decompressed urinary bladder with mild wall thickening. Hysterectomy. No adnexal mass lesion. Aorta and IVC are unremarkable. No adenopathy. No bowel obstruction or bowel wall thickening. Mild fecal retention of the rectum. Mild colonic diverticulosis. No ascites. Appendectomy. Mild diastases recti. Unremarkable soft tissues. There is no acute fracture. Mild lumbar levoscoliosis. Degenerative changes of the spine. IMPRESSION: 1. Moderate right-sided hydroureteronephrosis secondary to an obstructing 4 mm calculus of the distal right ureter. Perinephric and periureteral edema is likely reactive. Correlate with urinalysis to exclude superimposed infection. 2. 2 mm nonobstructing right renal calculus. 3. Hepatic steatosis. ACT 112: Negative or not required by law. The above report was generated using voice recognition software. It may contain grammatical, syntax or spelling errors. Electronically signed by: Carlos Chavez M.D. 06/08/2021 3:10 PM RT Ventilator Mngmt (Last Documented) Ventilator Ordered Settings Respiratory Rate 26 06/08/21 15:53 Ventilator - PT Measurements Respiratory Rate 26 PG Care Time/CCT Total # of Minutes Spent Total Time Spent with Patient: Total time spent is greater than 50% in coordination of care (as documented) at patient's floor/unit and/or counseling patient: Coding Level of Care Code INT OBSERVATION CARE 70M LVL 3 Diagnoses Diabetes E11.9 Right nephrolithiasis N20.0 Sepsis A41.9 Lactic acid blood increased R79.89 COVID-19 virus infection U07.1
[2021-06-08] MEDS ORDERED: NORMOSOL-R 1,000 ML IV ONE (16:56)
[2021-06-08] MEDS ORDERED: GLUCAGON FOR INJ 1 MG VIAL SQ PRN (17:31)
[2021-06-08] MEDS ORDERED: HYDROmorphone INJ 1 MG/ML SYRINGE IV PRN (17:31)
[2021-06-08] MEDS ORDERED: DEXTROSE 50% 50 ML SYRINGE IV PRN (17:31)
[2021-06-08] MEDS ORDERED: CARBOHYDRATES FOR HYPOGLYCEMIA PO PRN (17:31)
[2021-06-08] MEDS ORDERED: GLUCOSE 40% GEL 15 GM TUBE PO PRN (17:31)
[2021-06-08] MEDS ORDERED: GLUCOSE 10 TABS/TUBE PO PRN (17:31)
[2021-06-08] MEDS ORDERED: NORMOSOL-R 500 ML IV ONE ×2 (18:52→19:23)
[2021-06-08] MEDS: ENOXAPARIN INJ 30 MG/0.3 ML SYR SQ SCH (18:54)
[2021-06-08] MEDS: NORMOSOL-R 1,000 ML IV SCH (21:08)
[2021-06-08] MEDS: HYDROmorphone INJ 0.5 MG/0.5 ML SYR IV PRN (21:08)
[2021-06-09] MEDS: NORMOSOL-R 1,000 ML IV SCH ×4 (05:19→23:08)
[2021-06-09] MEDS: HYDROmorphone INJ 0.5 MG/0.5 ML SYR IV PRN (06:52)
[2021-06-09 07:42] LABS: Albumin Level 3.3 gm/dl (3.4-5.0); BUN Creatinine Ratio 15.9 (10-20); Bilirubin Direct 0.6 mg/dl (0-0.2); Bilirubin,Total 1.6 mg/dl (0.2-1.0); Calcium 7.3 mg/dl (8.5-10.1); Creatinine Clr Calc Pharmacy 54.2 ml/min; Est GFR (African American) 52.1 ml/min; Magnesium 1.5 mg/dl (1.7-2.4); Phosphorus 3.2 mg/dl (2.5-4.9); Potassium 3.4 mmol/L (3.5-5.1); Total Protein 5.2 gm/dl (6.0-8.3)
[2021-06-09 07:50] LABS: Basophils # (auto) 0.02 K/uL (0-0.2); Basophils % (auto) 0.1 %; Eosinophils # (auto) 0.01 K/uL (0-0.5); Eosinophils % (auto) 0.1 %; Hematocrit (blood only) 40.5 % (37-47); Hemoglobin 13.4 g/dL (12.0-16.0); Immature Granulocytes # (auto) 0.19 K/uL (0.00-0.02); Lymphocytes # (auto) 0.46 K/uL (1.2-3.4); Lymphocytes % (auto) 2.3 %; Mean Corpuscular Hemoglobin 31.9 pg (25-34); Mean Corpuscular Hgb Conc 33.1 g/dL (32-36); Mean Corpuscular Volume 96.4 fL (80-100); Mean Platelet Volume 11.2 fL (7.4-10.4); Monocytes # (auto) 0.21 K/uL (0.11-0.59); Monocytes % (auto) 1.1 %; Neutrophils # (auto) 18.73 K/uL (1.4-6.5); Neutrophils % (auto) 95.4 %; Platelet Count 63 K/uL (130-400); Platelet Estimate Decreased (Normal); RDW Coefficient of Variation 13.6 % (11.5-14.5); RDW Standard Deviation 48.3 fL (36.4-46.3); Toxic Vacuolation 1+; White Blood Count 19.62 K/uL (4.8-10.8)
[2021-06-09] MEDS: lisinopril 2.5 MG TAB PO SCH (08:15)
[2021-06-09] MEDS: LOSARTAN POTASSIUM 25 MG TAB PO SCH (08:15)
[2021-06-09] MEDS: PRAVASTATIN SOD 20 MG TAB PO SCH (08:15)
[2021-06-09] MEDS ORDERED: NORMOSOL-R 1,000 ML IV ONE (09:07)
[2021-06-09] MEDS ORDERED: SODIUM CHLORIDE 0.9% 1000ML 500 ML IV ONE (09:10)
[2021-06-09] MEDS ORDERED: POTASSIUM CHLORIDE CRTAB 20 MEQ TABCR PO STA (09:10)
--- NOTE | 2021-06-09 09:32 | Hospitalist Progress Note ---
Date of Service June 09, 2021 Assessment & Plan (1) Diabetes: Plan: Holding metformin Consider sliding scale insulin pending glycemic response to illness (2) Right nephrolithiasis: Plan: Patient currently 4.7 L ahead. Good urine output. She had 400 cc out this morning Continue to strain urine Now bacteremic with gram-negative bacilli -day #2 ceftriaxone Urology consulted for possible stent --NPO --Check stat INR, APTT in anticipation of stent placement in the OR (3) Sepsis: Plan: Repeat lactic acid 3.8 last evening Rocephin 1 gram q24 hours (day #2) Blood cultures with gram-negative bacilli. Await ID and sensitivities --Pyelonephritis --aggressive IVF administration --Hold antihypertensives this morning. --Fluid bolus for hypotension (4) Lactic acid blood increased: Plan: Patient bacteremic. Secondary to pyelonephritis Follow serial lactic acid Continue hydration Continue antibiotics with ceftriaxone (5) COVID-19 virus infection: Plan: Currently asymptomatic. Continue airborne isolation --admit med-tele (6) Electrolyte imbalance: Plan: Will give patient potassium chloride 40 mEq p.o. this morning We will give patient magnesium sulfate 2 g IV this morning Repeat labs this afternoon Secondary to sepsis Home medications include magnesium hydroxide 400 mg daily -resume once patient is taking orals (7) Hypotension: Plan: Secondary to bacteremic sepsis Continue IV antibiotics including ceftriaxone 1 L Normosol bolus this morning Cumulative fluid balance is +4.7 L Hold antihypertensives (8) Hypertension: Plan: Hold patient spironolactone Hold patient's lisinopril and losartan due to hypotension Continue to follow on a monitored telemetry bed Admission and Anticipated Discharge Date Admission Date: June 08, 2021 Supervising Physician Co-Signing Physician Notes chart reviewed, case d/w E April PAC Subjective Attending: Dr. Krause Patient seen and examined in room 219. She appears ill but not in distress. She continues to complain of pain on her left flank and back. She has no nausea or vomiting. She denies any anterior abdominal pain. No headache. She does report scant hematuria. She has no shortness of breath. She has no cough. She denies fever, chills, sweats, rigors. Review of Systems Review of Systems: All systems reviewed & are unremarkable except as noted in Subjective Physical Exam Physical Exam: GENERAL : No acute distress EYES: No icterus, gaze conjugate NOSE: No evidence of epistaxis MOUTH: No lesions or candidiasis NECK: Supple LUNGS: CTA B/L, no wheezes, rales or rhonchi HEART: Regular, slightly tachycardic in the low 100s. No appreciation of ectopy on examination ABDOMEN: Soft, NT, ND, BS Present BACK: CVA tenderness on the right EXTREMITIES: No LE edema, pedal pulses intact NEURO: A&OX3 Results & Data Results & Data ([facility]) Vital Signs (Past 12 Hours) Vital Signs Temp Pulse Pulse Pulse Resp BP Pulse Ox 06/09/21 07:43 122 H 06/09/21 07:38 36.8 C 118 H 18 94/59 L 93 06/09/21 04:18 36.4 C L 120 H 16 100/56 L 92 06/09/21 01:43 37 C 119 H 16 93/70 L 92 06/09/21 01:16 36.6 C 117 H 18 91/42 L 92 06/08/21 22:52 120 H 27 H 96 Critical Care Results & Data Vital Signs (Past 12 Hours) Vital Signs Temp Pulse Pulse Resp BP BP Pulse Ox 06/09/21 14:00 36.8 C 122 H 18 112/66 92 06/09/21 13:35 36.5 C 112 H 18 109/61 93 06/09/21 13:20 116 H 18 122/75 93 06/09/21 13:08 120 H 06/09/21 13:04 101/56 L 06/09/21 13:02 37.1 C 121 H 20 71/58 L 95 06/09/21 12:33 37.4 C 120 H 16 118/64 95 06/09/21 11:26 36.8 C 115 H 18 103/64 93 06/09/21 11:19 36.8 C 115 H 18 103/64 93 06/09/21 07:43 122 H 06/09/21 07:38 36.8 C 118 H 18 94/59 L 93 06/09/21 04:18 36.4 C L 120 H 16 100/56 L 92 Lab & Micro Results (Past 24 Hours) RBC 4.24 M/uL (4.2-5.4) 06/09/21 WBC 23.29 K/uL (4.8-10.8) H 06/09/21 Hgb 13.5 g/dL (12.0-16.0) 06/09/21 Hct 40.7 % (37-47) 06/09/21 MCV 96.0 fL (80-100) 06/09/21 MCH 31.8 pg (25-34) 06/09/21 MCHC 33.2 g/dL (32-36) 06/09/21 RDW Standard Deviation 48.4 fL (36.4-46.3) H 06/09/21 RDW Coefficient of Variation 13.7 % (11.5-14.5) 06/09/21 Plt Count 59 K/uL (130-400) L 06/09/21 MPV 11.4 fL (7.4-10.4) H 06/09/21 Neutrophils (%) (Auto) 91.5 % 06/09/21 Lymphocytes (%) (Auto) 4.2 % 06/09/21 Monocytes # (Auto) 0.44 K/uL (0.11-0.59) 06/09/21 Eosinophils # (Auto) 0.00 K/uL (0-0.5) 06/09/21 Immature Granulocyte % (Auto) 2.4 % 06/09/21 Neutrophils # (Auto) 21.30 K/uL (1.4-6.5) H 06/09/21 Lymphocytes # (Auto) 0.97 K/uL (1.2-3.4) L 06/09/21 Monocytes # (Auto) 0.44 K/uL (0.11-0.59) 06/09/21 Eosinophils # (Auto) 0.00 K/uL (0-0.5) 06/09/21 Basophils # (Auto) 0.01 K/uL (0-0.2) 06/09/21 Immature Granulocyte # (Auto) 0.57 K/uL (0.00-0.02) H 06/09/21 Toxic Vacuolation 1+ 06/09/21 Dohle Bodies 1+ 06/09/21 Na 136 mmol/L (136-145) 06/09/21 K 4.7 mmol/L (3.5-5.1) 06/09/21 Cl 103 mmol/L (98-107) 06/09/21 CO2 25 mmol/L (21-32) 06/09/21 Anion Gap 8 (3-11) 06/09/21 BUN 19 mg/dl (6-23) 06/09/21 Creatinine 1.00 mg/dl (0.6-1.2) 06/09/21 Estimated GFR ( Amer) 72.9 ml/min 06/09/21 Estimated GFR (Non-Af Amer) 62.9 ml/min 06/09/21 BUN/Creatinine Ratio 19.0 (10-20) 06/09/21 Glu 143 mg/dl (70-99(Fasting)) H 06/09/21 Ca 7.3 mg/dl (8.5-10.1) L 06/09/21 Phosphorus Level 3.2 mg/dl (2.5-4.9) 06/09/21 Total Bilirubin 1.8 mg/dl (0.2-1.0) H 06/09/21 Direct Bilirubin 0.6 mg/dl (0-0.2) H 06/09/21 AST 52 U/L (13-39) H 06/09/21 ALT 64 U/L (7-52) H 06/09/21 Alkaline Phosphatase 80 U/L (34-104) 06/09/21 TP 5.4 gm/dl (6.0-8.3) L 06/09/21 Albumin 3.4 gm/dl (3.4-5.0) 06/09/21 Globulin 2.0 gm/dl (2.5-4.0) L 06/09/21 Albumin/Globulin Ratio 1.7 (0.9-2) 06/09/21 Mg 1.5 mg/dl (1.7-2.4) L 06/09/21 06:26 06/09/21 Calcium Level 7.3 mg/dl (8.5-10.1) L 06/09/21 15:00 06/09/21 Ionized Calcium 1.01 mmol/L (1.12-1.32) L 06/09/21 06:26 06/09/21 Prothromb Time International Ratio 1.4 (0.9-1.1) H 06/09/21 09:32 06/09/21 Microbiology 06/08/21 13:00 Aerobic Blood Culture - Preliminary Blood Gram negative bacilli Anaerobic Blood Culture - Preliminary Gram negative bacilli 06/08/21 13:00 Aerobic Blood Culture - Preliminary Blood Gram negative bacilli Anaerobic Blood Culture - Preliminary Gram negative bacilli Diagnostic Findings (Past 24 Hours) Abdomen/Pelvis CT 06/08/21 12:[address] WITHOUT CONTRAST CT DOSE: 1041.19 mGycm HISTORY: Acute right-sided flank pain with fever and chills right flank pain, f/c TECHNIQUE: Multiaxial CT images of the abdomen and pelvis were performed without contrast. A dose lowering technique was utilized adhering to the principles of ALARA. COMPARISON STUDY: Lumbar spine MRI 05/07/2016 FINDINGS: The imaged inferior cardiac chambers are unremarkable. Clear lung bases. There is no pneumatosis or pneumoperitoneum. The unenhanced spleen, mildly atrophic pancreas, gallbladder and adrenal glands are unremarkable. Hepatic steatosis no hepatic mass lesion identified. Normal-appearing left kidney. 2 mm nonobstructing calculus of the interpolar right kidney. Moderate right-sided hydroureteronephrosis with associated perinephric and periureteral stranding secondary to an obstructing 4 x 3 x 4 mm calculus of the distal right ureter just proximal to the ureterovesicular junction. Decompressed urinary bladder with mild wall thickening. Hysterectomy. No adnexal mass lesion. Aorta and IVC are unremarkable. No adenopathy. No bowel obstruction or bowel wall thickening. Mild fecal retention of the rectum. Mild colonic diverticulosis. No ascites. Appendectomy. Mild diastases recti. Unremarkable soft tissues. There is no acute fracture. Mild lumbar levoscoliosis. Degenerative changes of the spine. IMPRESSION: 1. Moderate right-sided hydroureteronephrosis secondary to an obstructing 4 mm calculus of the distal right ureter. Perinephric and periureteral edema is likely reactive. Correlate with urinalysis to exclude superimposed infection. 2. 2 mm nonobstructing right renal calculus. 3. Hepatic steatosis. ACT 112: Negative or not required by law. The above report was generated using voice recognition software. It may contain grammatical, syntax or spelling errors. Electronically signed by: Carlos Chavez M.D. 06/08/2021 3:10 PM Retrograde Pyelogram 06/09/21 11:30 FL retrograde includes kub CLINICAL HISTORY: RT TECHNIQUE: 6 views were obtained with the C-arm in the OR with the above procedure. Total fluoroscopy time was 10.0 seconds. Total skin dose was 3.78 mGy. Comparison: None available at the time of this dictation. FINDINGS/IMPRESSION: Intraoperative images were obtained of right retrograde ureterogram and stent placement. Please correlate with intraoperative fluoroscopy and operative report. ACT 112: Negative or not required by law. Electronically signed by: Buddy Grigsby M.D. 06/09/2021 12:48 PM I & O Totals 24 Hours 06/08/21 06/09/21 06/10/21 06:59 06:59 06:59 Intake Total 5170 / 5170 2082.083 / 2082.083 Output Total 401 / 401 350 / 350 Balance 4769 / 4769 1732.083 / 1732.083 Cumulative 06/08/21 11:39 thru 06/09/21 13:43 Intake Total 7252.083 Output Total 751 Balance 6501.083 RT Ventilator Mngmt (Last Documented) Ventilator Ordered Settings Respiratory Rate 18 06/09/21 14:00 Ventilator - PT Measurements Respiratory Rate 18 PG Care Time/CCT Total # of Minutes Spent Total Time Spent with Patient: Total time spent is greater than 50% in coordination of care (as documented) at patient's floor/unit and/or counseling patient: Coding Level of Care Code 68362 Subseq Hosp Care Lvl 3 Diagnoses Diabetes E11.9 Right nephrolithiasis N20.0 Sepsis A41.9 Lactic acid blood increased R79.89 COVID-19 virus infection U07.1 Electrolyte imbalance E87.8 Hypotension I95.9 Hypertension I10 Time Spent (min) 25
[2021-06-09] MEDS: MAGNESIUM SULFATE / D5W 1 GM/100 ML BAG IV SCH ×2 (09:57→12:57)
[2021-06-09 10:11] LABS: Fibrinogen 275 mg/dl (184-400); INR 1.4 (0.9-1.1); Partial Thromboplastin Ratio 1.7; Partial Thromboplastin Time 43.4 Seconds (21.0-31.0); Prothrombin Time 13.9 Seconds (9.0-12.0)
--- NOTE | 2021-06-09 10:20 | Urology Consultation ---
Date of Consultation June 09, 2021 Assessment & Plan (1) Bacteremia: (2) Ureteral stone: (3) Hydronephrosis: (4) COVID-19 virus infection: 55yo F who presented with back pain and chills admitted with COVID-19 infection and an obstructing 4mm distal right ureteral stone. - Plan of care and imaging reviewed with Dr. Rivera, on-call urologist. - Tmax 37.7 on admission. Hypotensive and tachycardic overnight and this morning. - Afebrile at present. Labs reviewed - Wbc 19.62, Creatinine 1.32 - Continue to trend - Urinalysis on admission not overly suspicious for infection. - Blood cultures preliminary gram negative bacilli. - Continues on IV Ceftriaxone, follow cultures. - Given her bacteremia and flank pain in the context of an obstructing 4mm distal right ureteral stone, will proceed with OR for Cystoscopy, Right Retrograde Pyelogram, Right ureteral stent insertion. - Risks and benefits to be reviewed with patient by Dr. Rivera. OR notified. Covered with scheduled IV Ceftriaxone. Covid test positive. - Patient agreeable to plan, all questions were answered. - Keep NPO. - Strain all urine. - Continue supportive care and management per primary team. - Will continue to follow. Supervising Physician Co-Signing Physician Notes I have discussed Ms. Berry's case with TORRES Ivy and agree with the above documentation. She has been hypotensive and tachycardic, and also has preliminary positive blood cultures with gram-negative bacilli. Although her urinalysis is overall reassuring, the overall clinical picture cannot exclude an infected obstructing ureteral stone. We will therefore plan to go to the OR for cystoscopy, right ureteral stent placement. If the stone is readily visualized at the ureteral orifice, it may be removed, but the goal of today's procedure is not to remove the stone but to ensure drainage of her right kidney. History of Present Illness Reason for Consultation: Back pain, Ureterolithiasis Attending Physician: Amos Krause DO History of Present Illness 55yo F with a PMHx including DM, HTN, who presented with back pain and chills and was found to be COVID positive. CT abdomen pelvis was obtained and notable for moderate right sided hydronephrosis secondary to an obstructing 4mm calculus of the distal right ureter. Urology consulted for back pain, ureterolithiasis. CTAP IMPRESSION: 1. Moderate right-sided hydroureteronephrosis secondary to an obstructing 4 mm calculus of the distal right ureter. Perinephric and periureteral edema is likely reactive. Correlate with urinalysis to exclude superimposed infection. 2. 2 mm nonobstructing right renal calculus. 3. Hepatic steatosis. Chart review - Afebrile. Hypotensive and Tachycardic this morning. Wbc 19.62 Hgb 13.4 Cr 1.32 UA on admission 1+blood, negative nitrite, negative leukocytes, 10-30RBC, negative bacteria. Blood cultures preliminary gram negative bacilli On IV Ceftriaxone. Covid positive. Urine output overnight - 750 ml Pt examined at bedside. Awake. No acute distress. Reports feeling "weak and tired." Afebrile at present. Tmax 37.7 -06/08/2021 1553. Reports right flank and back pain has improved since admission. Denies stone passage. Denies chills. Denies nausea or vomiting. Voiding without issue. Denies hematuria and dysuria. Feels she is emptying her bladder. Denies prior hx of stones. Has been NPO. Allergies Allergy/AdvReac Type Severity Reaction Status Date / Time codeine AdvReac Intermediate VOMITING Verified 06/08/21 14:57 hydrocodone AdvReac Unknown NAUSEA Verified 06/08/21 15:04 Home Medications Medication Instructions Recorded Confirmed Type aspirin 81 mg tablet,delayed 81 mg PO DAILY 02/13/21 06/08/21 History release (Adult Low Dose Aspirin) coenzyme Q10 75 mg capsule (Ultra 75 mg PO DAILY 02/13/21 06/08/21 History CoQ10) fexofenadine 180 mg tablet 180 mg PO DAILY 02/13/21 06/08/21 History (Adenike Allergy) magnesium hydroxide 400 mg (170 mg 400 mg PO DAILY 02/13/21 06/08/21 History magnesium) chewable tablet meloxicam 15 mg tablet (Mobic) 15 mg PO DAILY 02/13/21 06/08/21 History metformin 500 mg tablet 500 mg PO DAILY 02/13/21 06/08/21 History pravastatin 20 mg tablet 20 mg PO DAILY 02/13/21 06/08/21 History spironolactone 25 mg tablet 25 mg PO DAILY 02/13/21 06/08/21 History cholecalciferol (vitamin D3) 25 25 mcg PO DAILY 06/08/21 06/08/21 History mcg (1,000 unit) capsule (Vitamin D3) famciclovir 250 mg tablet 250 mg PO BID 06/08/21 06/08/21 History lisinopril 2.5 mg tablet 2.5 mg PO DAILY 06/08/21 06/08/21 History losartan 25 mg tablet 25 mg PO DAILY 06/08/21 06/08/21 History Patient History Social History Smoking Status: Never smoker Hx Alcohol Use: No Hx Substance Use: No Preferred Language: Albanian Communication Ability: Effective Inspector Purchased Parts Required: No Beliefs That Will Affect Care: None Current Living Situation: Spouse Feels Safe at Home: Yes Assistive Devices: None Review of Systems Review of Systems: All systems reviewed & are unremarkable except as noted in HPI & below Physical Exam Constitutional: no acute distress nontoxic appearing Respiratory: no respiratory distress and no labored breathing Cardiovascular: Extremities: no pedal edema Tachycardic Gastrointestinal (Abdomen): Inspection/Auscultation: abdomen normal to inspection; abdomen not distended Musculoskeletal: Head/Neck/Chest: normocephalic Skin: No visible rashes or lesions to exposed skin areas Neurologic: moves all extremities and awake Psychiatric: Orientation: alert, oriented x 3 and cooperative Results & Data ([facility]) Vital Signs (Past 12 Hours) Vital Signs Temp Pulse Pulse Pulse Resp BP Pulse Ox 06/09/21 07:43 122 H 06/09/21 07:38 36.8 C 118 H 18 94/59 L 93 06/09/21 04:18 36.4 C L 120 H 16 100/56 L 92 06/09/21 01:43 37 C 119 H 16 93/70 L 92 06/09/21 01:16 36.6 C 117 H 18 91/42 L 92 06/08/21 22:52 120 H 27 H 96 PG Care Time/CCT Total # of Minutes Spent Total Time Spent with Patient: Total time spent is greater than 50% in coordination of care (as documented) at patient's floor/unit and/or counseling patient: Coding Level of Care Code 77638 Inpt Consult Level 4 Diagnoses Ureteral stone N20.1 Hydronephrosis N13.30 COVID-19 virus infection U07.1 Bacteremia R78.81
[2021-06-09 10:38] LABS: D Dimer > 35200 ug/L FEU (0-500)
[2021-06-09] MEDS ORDERED: MIDAZOLAM HCL 1 MG/ML 2ML VIAL ONE (11:00)
[2021-06-09] MEDS ORDERED: PROPOFOL IV EMULSION 10 MG/ML 20 ML VIAL IV ONE (11:00)
[2021-06-09] MEDS ORDERED: LIDOCAINE 2% 2 ML VIAL/AMP(20MG/ML) INFIL ONE (11:00)
[2021-06-09] MEDS ORDERED: fentaNYL citrate 100 MCG/2 ML VIAL ONE (11:00)
[2021-06-09] MEDS ORDERED: ONDANSETRON INJ 2 MG/ML 2 ML VIAL ONE (11:00)
[2021-06-09] MEDS ORDERED: fentaNYL citrate 100 MCG/2 ML VIAL IV PRN ×2 (11:15→13:43)
[2021-06-09] MEDS ORDERED: ATROPINE SULFATE 0.1 MG/ML 10ML SYR IV PRN ×2 (11:15→13:43)
[2021-06-09] MEDS ORDERED: ONDANSETRON INJ 2 MG/ML 2 ML VIAL IV PRN ×2 (11:15→13:43)
[2021-06-09] MEDS ORDERED: ePHEDrine sulfate 50 MG/ML AMP IV PRN ×2 (11:15→13:43)
--- NOTE | 2021-06-09 12:27 | Operative Report ---
PG Post Operative Report Pre & Post Diagnosis Operation Date: 06/09/21 09:55 Pre-Op Diagnosis: Right ureteral stone, hydronephrosis Post-Op Diagnosis: Right ureteral stone, hydronephrosis I identified the patient and participated in the time-out.: Yes Procedure Operation Date: 06/09/21 09:55 Actual Procedures p Cystoscopy Retrograde Pyelogram, Right Stent Placement - Rivas Rivera MD Surgeon Rivas Rivera MD Director Of Convention Services None Estimated Blood Loss 0 Findings See Below Successful right ureteral stent placement Specimens Urine from right kidney for culture Drains 6 Guatemalan by 24 cm double-J ureteral stent in the right ureter Anesthesia Type MAC Complications none Disposition Disposition: Recovery Room Indications This is a 55-year-old female who recently presented to the hospital with subjective fevers, hypotension and tachycardia. Should she was found on CT scan to have an obstructing 4 mm stone in the distal right ureter. She was also noted to be Covid positive. Urinalysis was fairly bland, but she had preliminary gram- negative bacteremia. She is being brought to the OR today for right ureteral stent placement to allow maximal drainage of her right kidney. Description of Procedure The patient was identified and informed consent was confirmed. They were marked on the right side, then were taken to the operating room where general anesthesia was initiated. They were placed in the dorsal lithotomy position with all pressure points appropriately padded. They were prepped and draped in the usual sterile fashion and a preoperative timeout was performed. A well-lubricated cystoscope was inserted per urethra and panendoscopy was performed. Her urethra was normal with no strictures or mucosal abnormalities. The bladder was also normal with no tumors or stones appreciated. Ureteral orifices were in orthotopic position bilaterally. The right ureteral orifice was identified and cannulated with a 5 Guatemalan open- ended catheter. A retrograde pyelogram was performed demonstrating a filling defect in the distal ureter, possibly representing the stone. A 0.038" ZIPwire was advanced to the level of the kidney under fluoroscopic guidance. There was drainage of contrast in urine from the kidney alongside the wire, but it did not appear grossly purulent. Over the wire, a 6 Guatemalan x 24 centimeter double-J ureteral stent was advanced. When the wire was removed, the proximal curl was visualized in the kidney with x-ray, and the distal curl visualized in the bladder with the cystoscope. There was ongoing drainage of contrast in urine from the right kidney. A sample of this was collected and sent for culture. At this point the bladder was drained and all instrumentation was removed. The patient was then awakened from anesthesia and was brought to the PACU in stable condition. I attest to the content of the Intraoperative Record and any orders documented therein. Any exceptions are noted below.
--- NOTE | 2021-06-09 12:49 | Fluoroscopy Report ---
FL retrograde includes kub CLINICAL HISTORY: RT TECHNIQUE: 6 views were obtained with the C-arm in the OR with the above procedure. Total fluoroscopy time was 10.0 seconds. Total skin dose was 3.78 mGy. Comparison: None available at the time of this dictation. FINDINGS/IMPRESSION: Intraoperative images were obtained of right retrograde ureterogram and stent pl acement. Please correlate with intraoperative fluoroscopy and operative report. ACT 112: Negative or not required by law. Electronically signed by: Buddy Grigsby M.D. 06/09/2021 12:48 PM
--- NOTE | 2021-06-09 13:42 | Anesthesiology Progress Note ---
Date of Service June 09, 2021 Anesthesia Post Procedure Vital Signs Vital Signs: Temp Pulse Pulse Pulse Resp BP BP 06/09/21 13:35 36.5 C 112 H 18 109/61 06/09/21 13:20 116 H 18 122/75 06/09/21 13:08 120 H 06/09/21 13:04 101/56 L 06/09/21 13:02 37.1 C 121 H 20 71/58 L 06/09/21 12:33 37.4 C 120 H 16 118/64 06/09/21 11:26 36.8 C 115 H 18 103/64 06/09/21 11:19 36.8 C 115 H 18 103/64 06/09/21 07:43 122 H 06/09/21 07:38 36.8 C 118 H 18 94/59 L 06/09/21 04:18 36.4 C L 120 H 16 100/56 L 06/09/21 01:43 37 C 119 H 16 93/70 L 06/09/21 01:16 36.6 C 117 H 18 91/42 L 06/08/21 22:52 120 H 27 H 06/08/21 20:02 128 H 25 H 99/62 L 06/08/21 19:39 132 H 27 H 108/54 L 06/08/21 17:31 37 C 134 H 18 110/47 L 06/08/21 16:56 128 H 20 145/70 H 06/08/21 15:53 37.7 C H 120 H 26 H 143/68 H Pulse Ox 06/09/21 13:35 93 06/09/21 13:20 93 06/09/21 13:08 06/09/21 13:04 06/09/21 13:02 95 06/09/21 12:33 95 06/09/21 11:26 93 06/09/21 11:19 93 06/09/21 07:43 06/09/21 07:38 93 06/09/21 04:18 92 06/09/21 01:43 92 06/09/21 01:16 92 06/08/21 22:52 96 06/08/21 20:02 94 06/08/21 19:39 93 06/08/21 17:31 94 06/08/21 16:56 95 06/08/21 15:53 98 Transfer of Care Handoff Completed per policy Notes Mental Status: alert / awake / arousable and participated in evaluation Patient Amnestic to Procedure: Yes Nausea / Vomiting: adequately controlled Pain: adequately controlled Airway Patency, RR, SpO2: stable & adequate BP & HR: stable & adequate Hydration State: stable & adequate Anesthetic Complications: no major complications apparent and Pt Satisfied with anesthetic care
--- NOTE | 2021-06-09 13:43 | Anesthesiology Consultation ---
Date of Service June 09, 2021 Assessment & Plan ASA [id number] Proposed Anesthesia Anesthesia Type: MAC Risk / Benefits Reviewed With: PT / POA / Parent / Guardian, Accepts Plan and Informed Consent Obtained Additional Comments: pt was seen prior to anesdthesia. late entry because pt was preoped in [facility] area without computer History Surgery Operation Date: 06/09/21 09:55 Proposed Procedures p Cystoscopy Retrograde Pyelogram, Right Stent Placement - Rivas Rivera MD Height/Weight Height: 5 ft 7 in Weight: 87.9 kg Allergies Allergy/AdvReac Type Severity Reaction Status Date / Time codeine AdvReac Intermediate VOMITING Verified 06/08/21 14:57 hydrocodone AdvReac Unknown NAUSEA Verified 06/08/21 15:04 Medications Home Medications Medication Instructions Recorded Confirmed Last Taken aspirin 81 mg tablet,delayed 81 mg PO DAILY 02/13/21 06/08/21 Unknown release (Adult Low Dose Aspirin) coenzyme Q10 75 mg capsule (Ultra 75 mg PO DAILY 02/13/21 06/08/21 Unknown CoQ10) fexofenadine 180 mg tablet 180 mg PO DAILY 02/13/21 06/08/21 Unknown (Adenike Allergy) magnesium hydroxide 400 mg (170 mg 400 mg PO DAILY 02/13/21 06/08/21 Unknown magnesium) chewable tablet meloxicam 15 mg tablet (Mobic) 15 mg PO DAILY 02/13/21 06/08/21 Unknown metformin 500 mg tablet 500 mg PO DAILY 02/13/21 06/08/21 Unknown pravastatin 20 mg tablet 20 mg PO DAILY 02/13/21 06/08/21 Unknown spironolactone 25 mg tablet 25 mg PO DAILY 02/13/21 06/08/21 Unknown cholecalciferol (vitamin D3) 25 25 mcg PO DAILY 06/08/21 06/08/21 Unknown mcg (1,000 unit) capsule (Vitamin D3) famciclovir 250 mg tablet 250 mg PO BID 06/08/21 06/08/21 Unknown lisinopril 2.5 mg tablet 2.5 mg PO DAILY 06/08/21 06/08/21 Unknown losartan 25 mg tablet 25 mg PO DAILY 06/08/21 06/08/21 Unknown Active Medications Generic Name Dose Route Start Last Admin Trade Name Freq PRN Reason Stop Dose Admin Enoxaparin Sodium 30 mg 06/08/21 18:00 02/17/22 18:54 Enoxaparin Inj 30 Mg/0.3 Ml Syr SQ 07/08/21 17:59 30 mg Q24H ROMEL Administration Hydromorphone HCl 0.5 mg 06/08/21 17:31 06/09/21 06:52 Hydromorphone Inj 0.5 Mg/0.5 Ml Syr IV 06/22/21 17:30 0.5 mg Q2H PRN Administration Moderate Pain (4,5,6) on NRS Parenteral Electrolytes 1,000 mls @ 200 mls/hr 06/08/21 17:00 06/09/21 12:56 Normosol-R IV 07/08/21 16:59 200 mls/hr .Q5H ROMEL Administration Magnesium Sulfate/Dextrose 1 gm in 100 mls @ 50 mls/hr 06/09/21 09:45 06/09/21 12:57 Magnesium Sulfate / D5w IV 06/09/21 13:44 50 mls/hr Q2H ROMEL Administration Lisinopril 2.5 mg 06/09/21 09:00 06/09/21 08:15 Lisinopril 2.5 Mg Tab PO 07/09/21 08:59 Not Given DAILY ROMEL Losartan Potassium 25 mg 06/09/21 09:00 06/09/21 08:15 Losartan Potassium 25 Mg Tab PO 07/09/21 08:59 Not Given DAILY ROMEL Pravastatin Sodium 20 mg 06/09/21 09:00 06/09/21 08:15 Pravastatin Sod 20 Mg Tab PO 07/09/21 08:59 20 mg DAILY ROMEL Administration NPO Last Intake of Fluids Comment: few ice chips only- NPO after midnight per report Last Intake of Solids Comment: NPO after midnight per report Exercise / Class Metabolic Activity II 4-5 Yardwork/Stairs/Walk up hill Past Anesthesia History No Hx of Anesthesia Complications and No Family Hx of Anesthesia Complications History of PONV No Hx of PONV and No Hx of Motion Sickness Social History Smoking Status: Never smoker Hx Alcohol Use: No Hx Substance Use: No Review of Systems denies fever/cough/ colds/ chest pain/ SOB/ URSULA denies URSULA Physical Exam Vital Signs Last Vital Signs Temp 36.5 C 06/09/21 13:35 Pulse 112 H 06/09/21 13:35 Resp 18 06/09/21 13:35 BP 109/61 06/09/21 13:35 Pulse Ox 93 06/09/21 13:35 ENMT Mouth: no TMJ abnormality and no dentition abnormality Thyromental Distance: > or= 3.5 Finger Breadths Mallampati Class: II Neck neck extension not limited Respiratory normal respiratory effort; no respiratory distress Auscultation: lungs clear to auscultation bilaterally Cardiovascular Rate/Rhythm: regular rate and regular rhythm Neurologic moves all extremities Psychiatric Orientation: alert and oriented x 3 Testing Laboratory Results 06/09/21 06:26 06/09/21 06:26 PT 13.9 Seconds (9.0-12.0) H 06/09/21 09:32 INR 1.4 (0.9-1.1) H 06/09/21 09:32 APTT 43.4 Seconds (21.0-31.0) H 06/09/21 09:32 Urine Color Yellow 06/08/21 14:10 Urine Appearance Clear (Clear) 06/08/21 14:10 Urine pH 5.5 (4.5-7.5) 06/08/21 14:10 Ur Specific [place] 1.011 (1.000-1.030) 06/08/21 14:10 Urine Protein Negative (Negative) 06/08/21 14:10 Urine Glucose (UA) Negative (Negative) 06/08/21 14:10 Urine Ketones Trace (Negative) H 06/08/21 14:10 Urine Nitrite Negative (Negative) 06/08/21 14:10 Ur Leukocyte Esterase Negative (Negative) 06/08/21 14:10 Urine WBC (Auto) 1-5 /hpf (0-5) 06/08/21 14:10 Urine RBC (Auto) 10-30 /hpf (0-4) H 06/08/21 14:10 U Hyaline Cast (Auto) 1-5 /lpf (0-5) 06/08/21 14:10 U Epithel Cells (Auto) 20-30 /lpf (0-5) H 06/08/21 14:10 Urine Bacteria (Auto) Negative (Negative) 06/08/21 14:10 06/08/21 13:00 Aerobic Blood Culture - Preliminary Blood Gram negative bacilli Anaerobic Blood Culture - Preliminary Gram negative bacilli 06/08/21 13:00 Aerobic Blood Culture - Preliminary Blood Gram negative bacilli Anaerobic Blood Culture - Preliminary Gram negative bacilli
[2021-06-09 15:20] LABS: Hematocrit (blood only) 40.7 % (37-47); Hemoglobin 13.5 g/dL (12.0-16.0); Mean Corpuscular Hemoglobin 31.8 pg (25-34); Mean Corpuscular Hgb Conc 33.2 g/dL (32-36); RDW Coefficient of Variation 13.7 % (11.5-14.5); RDW Standard Deviation 48.4 fL (36.4-46.3); Red Blood Count 4.24 M/uL (4.2-5.4); White Blood Count 23.29 K/uL (4.8-10.8)
--- NOTE | 2021-06-09 15:20 | Electrocardiogram Report ---
Test Reason : Blood Pressure : / mmHG Vent. Rate : 067 BPM Atrial Rate : 067 BPM P-R Int : 124 ms QRS Dur : 078 ms QT Int : 410 ms P-R-T Axes : 065 -01 023 degrees QTc Int : 433 ms Poor data quality, interpretation may be adversely affected Normal sinus rhythm Normal ECG When compared with ECG of 02-MAR-2015 16:25, No significant change was found Confirmed by Jun Joseph ([id number]) on 06/09/2021 3:20:20 PM Referred By: REFERRED SELF Confirmed By:Jun Joseph
[2021-06-09 15:21] LABS: Mean Platelet Volume 11.4 fL (7.4-10.4); Platelet Count 59 K/uL (130-400)
[2021-06-09 15:41] LABS: Basophils # (auto) 0.01 K/uL (0-0.2); Dohle Bodies 1+; Immature Granulocytes # (auto) 0.57 K/uL (0.00-0.02); Immature Granulocytes % (auto) 2.4 %; Lymphocytes # (auto) 0.97 K/uL (1.2-3.4); Lymphocytes % (auto) 4.2 %; Monocytes # (auto) 0.44 K/uL (0.11-0.59); Monocytes % (auto) 1.9 %; Neutrophils % (auto) 91.5 %; Toxic Vacuolation 1+
[2021-06-09 15:42] LABS: Potassium 4.7 mmol/L (3.5-5.1)
[2021-06-09] MEDS: cefTRIAXone SODIUM 2,000 MG in DEXTROSE 5% 50 ML IV SCH (17:24)
[2021-06-09 18:09] LABS: Albumin Globulin Ratio 1.7 (0.9-2); Albumin Level 3.4 gm/dl (3.4-5.0); Bilirubin,Total 1.8 mg/dl (0.2-1.0); Calcium 7.3 mg/dl (8.5-10.1); Creatinine Clr Calc Pharmacy 71.5 ml/min; Est GFR (African American) 72.9 ml/min; Est GFR (Non-African American) 62.9 ml/min; Total Protein 5.4 gm/dl (6.0-8.3)
[2021-06-09] MEDS: ACETAMINOPHEN 1,000 MG/100 ML VIAL IV PRN (18:51)
[2021-06-10] MEDS: HYDROmorphone INJ 0.5 MG/0.5 ML SYR IV PRN ×2 (01:51→14:22)
[2021-06-10] MEDS: NORMOSOL-R 1,000 ML IV SCH ×5 (01:55→19:30)
[2021-06-10] MEDS: ACETAMINOPHEN 1,000 MG/100 ML VIAL IV PRN ×2 (02:28→17:34)
[2021-06-10 07:10] LABS: BUN Creatinine Ratio 20.5 (10-20); Calcium 7.5 mg/dl (8.5-10.1); Creatinine Clr Calc Pharmacy 100.6 ml/min; Est GFR (African American) 106.7 ml/min; Est GFR (Non-African American) 92.1 ml/min; Magnesium 2.5 mg/dl (1.7-2.4)
[2021-06-10 07:21] LABS: Basophils # (auto) 0.01 K/uL (0-0.2); Basophils % (auto) 0.1 %; Hematocrit (blood only) 38.1 % (37-47); Hemoglobin 12.7 g/dL (12.0-16.0); Immature Granulocytes # (auto) 1.48 K/uL (0.00-0.02); Immature Granulocytes % (auto) 8.3 %; Lymphocytes % (auto) 5.6 %; Mean Corpuscular Hemoglobin 32.2 pg (25-34); Mean Corpuscular Hgb Conc 33.3 g/dL (32-36); Mean Corpuscular Volume 96.5 fL (80-100); Mean Platelet Volume 12.5 fL (7.4-10.4); Monocytes # (auto) 0.66 K/uL (0.11-0.59); Monocytes % (auto) 3.7 %; Neutrophils # (auto) 14.71 K/uL (1.4-6.5); Neutrophils % (auto) 82.3 %; Platelet Count 49 K/uL (130-400); RDW Coefficient of Variation 13.7 % (11.5-14.5); Red Blood Count 3.95 M/uL (4.2-5.4); White Blood Count 17.86 K/uL (4.8-10.8)
[2021-06-10] MEDS: lisinopril 2.5 MG TAB PO SCH (07:26)
[2021-06-10] MEDS: PRAVASTATIN SOD 20 MG TAB PO SCH (07:26)
[2021-06-10] MEDS: LOSARTAN POTASSIUM 25 MG TAB PO SCH (07:26)
--- NOTE | 2021-06-10 10:05 | Hospitalist Progress Note ---
Date of Service June 10, 2021 Assessment & Plan (1) Right nephrolithiasis: Plan: Pt taken to OR as progressive sepsis, with right ureteral stent place blood cultures with rush sensitive E coli, ceftriaxone started 06/08/21 (2) Sepsis: Plan: Resolved secondary to Pyelonephritis from Gram negative bacteremia from urinary source evidenced by elevated lactic acid (3) Diabetes: Plan: Holding metformin Consider sliding scale insulin pending glycemic response to illness (4) Lactic acid blood increased: Plan: resolving (5) COVID-19 virus infection: Plan: Currently asymptomatic. quizzed for previous illness to see if this is persistently positive and is not Continue airborne isolation no supplemental oxygen required (6) Electrolyte imbalance: Plan: replete potassium and magnesium for hypokalemia and hypomagnesemia (7) Hypotension: Plan: Secondary to bacteremic sepsis volume resusitated Cumulative fluid balance is +4.7 L no evidence of peripheral edema (8) Hypertension: Plan: Hold patient spironolactone, lisinopril and losartan due to hypotension Plan: enoxaparin for dvt prevention Admission and Anticipated Discharge Date Admission Date: June 08, 2021 Subjective pt has pain controlled, she is without need for oxygen for her Covid, did explain about blood cultures being positive and need for another set Review of Systems Review of Systems: Mild distress and fatigue no headache, no visual changes no speech or swallowing issues no chest pain, pressure or palpitations no shortness of breath, cough or wheezes no abdominal pain, nausea or vomiting, diarrhea or constipation some flank pain and tinges of hematuria no focal joint pain or swelling no back pain,mild right CVA tenderness no bruising, bleeding or rashes no focal signs of weakness or numbness or altered sensation no complaints of anxiety or depression.. Physical Exam Physical Exam: The patient appeared well nourished and normally developed. Vital signs as documented. Head exam is normocephalic atraumatic Neck is without JVD, thyromegaly, or carotid bruits. Lungs are clear to auscultation, no focal loss of breath sounds Cardiac exam, Rhythm is regular.. No murmurs, rubs or gallops. Abdominal exam reveals normal bowel sounds, soft mild flank tenderness Extremities are nonedematous and both pedal pulses are present Neurologic exam is alert and oriented, no focal loss of strength or sensation Skin is without bruises or rashes Psychologically is without concerns for anxiety or depression.. Results & Data Results & Data ([facility]) Vital Signs (Past 12 Hours) Vital Signs Temp Pulse Resp BP BP Pulse Ox 06/10/21 07:44 97.7 F 85 18 111/70 92 06/10/21 04:56 97.9 F 96 H 16 111/68 94 06/09/21 22:40 98.1 F 102 H 20 104/58 L 92 PG Care Time/CCT Total # of Minutes Spent Total Time Spent with Patient: Total time spent is greater than 50% in coordination of care (as documented) at patient's floor/unit and/or counseling patient: Coding Level of Care Code 51008 Subseq Hosp Care Lvl 2 Diagnoses Diabetes E11.9 Right nephrolithiasis N20.0 Sepsis A41.9 Lactic acid blood increased R79.89 COVID-19 virus infection U07.1 Electrolyte imbalance E87.8 Hypotension I95.9 Hypertension I10
--- NOTE | 2021-06-10 11:29 | Urology Progress Note ---
Date of Service June 10, 2021 Assessment & Plan (1) Ureterolithiasis: Plan: Stone was not visualized during stent placement, and is likely still within the ureter. Urine should be draining well from the kidney at this point with the stent in good position. Urology will plan to schedule outpatient follow-up to discuss definitive management of her ureteral stone. From the postoperative perspective, it is okay for her to have a regular diet. (2) Bacteremia: Plan: Source of bacteremia is not entirely present. Urinalysis was fairly bland and no organisms have been appreciated on culture yet. In absence of other source, it is possibly related to the obstructing stone, which should be improved at this point, with stent placement. Would recommend repeating blood cultures to ensure that they are negative, and continue treating with antibiotics. Admission and Anticipated Discharge Date Admission Date: June 08, 2021 Subjective In order to limit exposure to COVID-19, this visit was held via telephone. We spent approximately 7 minutes on the phone. Spent an additional 5 minutes documenting our encounter / in coordination of care. Ms. Berry reports that she is feeling okay after stent placement on 06/09/2021. She denies any fevers or chills. Her vital signs have all been improving. She is tolerating the stent pretty well. She notes occasional pain with urinating, but does not have much pain at baseline. She has not passed any stone fragments. She is emptying her bladder well. She would like to have more solid food in her diet. Labs reviewed: Leukocytosis improving (23 down to 17.8) Electrolytes within normal limits, creatinine is improved from 1.3 down to 0.7. Urine culture from the obstructed kidney pending. Blood cultures from 06/08 with pansensitive E. coli. Review of Systems Review of Systems: Denies fevers or chills Genitourinary: Voiding without trouble, some dysuria Results & Data ([facility]) Vital Signs (Past 12 Hours) Vital Signs Temp Pulse Resp BP BP Pulse Ox 06/10/21 07:44 36.5 C 85 18 111/70 92 06/10/21 04:56 36.6 C 96 H 16 111/68 94 PG Care Time/CCT Total # of Minutes Spent Total Time Spent with Patient: Total time spent is greater than 50% in coordination of care (as documented) at patient's floor/unit and/or counseling patient: Coding Level of Care Code 53825 Subseq Hosp Care Lvl 1 Diagnoses Ureterolithiasis N20.1 Bacteremia R78.81
[2021-06-10] MEDS: cefTRIAXone SODIUM 2,000 MG in DEXTROSE 5% 50 ML IV SCH (15:30)
[2021-06-10] MEDS: ENOXAPARIN INJ 30 MG/0.3 ML SYR SQ SCH (17:35)
[2021-06-10] MEDS ORDERED: KETOROLAC TROMETHAMINE 15 MG/ML VIAL IV ONE (22:12)
[2021-06-11] MEDS ORDERED: ACETAMINOPHEN 1,000 MG/100 ML VIAL IV SCH
[2021-06-11] MEDS: ACETAMINOPHEN 500 MG TAB PO SCH ×4 (00:12→23:38)
[2021-06-11] MEDS: NORMOSOL-R 1,000 ML IV SCH ×5 (01:34→22:13)
[2021-06-11] MEDS ORDERED: valACYclovir HCL 500 MG TABLET PO ONE ×2 (05:03→15:59)
[2021-06-11 06:52] LABS: BUN Creatinine Ratio 21.9 (10-20); Calcium 7.9 mg/dl (8.5-10.1); Creatinine Clr Calc Pharmacy 101.7 ml/min; Est GFR (African American) 106.7 ml/min; Est GFR (Non-African American) 92.1 ml/min; Magnesium 2.1 mg/dl (1.7-2.4); Potassium 3.8 mmol/L (3.5-5.1)
[2021-06-11 07:05] LABS: ALC (manual) 1.44 K/uL (1.2-3.4); ANC (manual) 21.79 K/uL (1.4-6.5); Dohle Bodies 1+; Hematocrit (blood only) 37.3 % (37-47); Hemoglobin 12.3 g/dL (12.0-16.0); Lymphocytes # (manual) 1.44 K/uL (1.2-3.4); Lymphocytes % (manual) 6.1 %; Mean Corpuscular Hemoglobin 31.5 pg (25-34); Mean Corpuscular Volume 95.6 fL (80-100); Mean Platelet Volume 12.2 fL (7.4-10.4); Monocytes # (manual) 0.43 K/uL (0.11-0.59); Monocytes % (manual) 1.8 %; Neutrophils # (manual) 21.79 K/uL (1.4-6.5); Neutrophils % (manual) 92.1 %; Platelet Count 56 K/uL (130-400); RDW Coefficient of Variation 13.8 % (11.5-14.5); RDW Standard Deviation 48.1 fL (36.4-46.3); White Blood Count 23.66 K/uL (4.8-10.8)
[2021-06-11] MEDS ORDERED: COUGH DROP (SUGAR FREE) LOZ 24 LOZ/1 BOX BUCCAL ONE (09:11)
[2021-06-11] MEDS: LOSARTAN POTASSIUM 25 MG TAB PO SCH (09:14)
[2021-06-11] MEDS: lisinopril 2.5 MG TAB PO SCH (09:14)
[2021-06-11] MEDS: PRAVASTATIN SOD 20 MG TAB PO SCH (09:14)
[2021-06-11] MEDS: SACCHAROMYCES BOULARDII 250 MG CAP PO SCH (14:26)
--- NOTE | 2021-06-11 15:23 | Hospitalist Progress Note ---
Date of Service June 11, 2021 Assessment & Plan (1) Right nephrolithiasis: Plan: Pt taken to OR as progressive sepsis, with right ureteral stent place blood cultures with rush sensitive E coli, ceftriaxone started 06/08/21 Repeat cultures on 06/10 negative to date (2) Sepsis: Plan: secondary to Pyelonephritis from Gram negative bacteremia from urinary source [place] ptosis is increasing on the concern for C. difficile continuing on antibiotics for E. coli bacteremia repeat white count and lactic acid on 06/12/2021 (3) Diarrhea: Plan: Patient with diarrhea which looks to be possibly clinically consistent with C. difficile. Patient has a C. difficile pending she is given oral vancomycin and cholestyramine. She looks clinically in mild distress and likely will postpone her discharge until this problem is defined (4) Diabetes: Plan: Holding metformin SSI and glycemic management (5) Lactic acid blood increased: Plan: resolved (6) COVID-19 virus infection: Plan: Currently asymptomatic. quizzed for previous illness to see if this is persistently positive and is not Continue airborne isolation Continues without supplemental oxygen required (7) Electrolyte imbalance: Plan: replete potassium and magnesium for hypokalemia and hypomagnesemia (8) Hypotension: Plan: Secondary to bacteremic sepsis volume resuscitated Eating and drinking well no evidence of peripheral edema (9) Hypertension: Plan: Hold patient spironolactone, lisinopril and losartan due to hypotension Plan: enoxaparin for dvt prevention Admission and Anticipated Discharge Date Admission Date: June 08, 2021 Subjective Patient has relatively little abdominal or flank pain she is having diarrhea preceded by abdominal cramping. The diarrhea is liquid and sent for C. difficile testing she was started on oral vancomycin and cholestyramine at this time. Second set of blood cultures are currently negative. She however looks to be in mild to moderate distress and is flushed Review of Systems Review of Systems: Mild distress and fatigue no headache, no visual changes no speech or swallowing issues no chest pain, pressure or palpitations no shortness of breath, cough or wheezes no abdominal pain, nausea or vomiting, foul-smelling liquid diarrhea some flank pain and continues with tinges of hematuria no focal joint pain or swelling no back pain,mild right CVA tenderness no bruising, bleeding or rashes no focal signs of weakness or numbness or altered sensation no complaints of anxiety or depression.. Physical Exam Physical Exam: The patient appeared flushed and diaphoretic but no documented temperature Vital signs as documented. Head exam is normocephalic atraumatic Neck is without JVD, thyromegaly, or carotid bruits. Lungs are clear to auscultation, no focal loss of breath sounds Cardiac exam, Rhythm is regular.. No murmurs, rubs or gallops. Abdominal exam reveals normal bowel sounds, soft mild right-sided tenderness Extremities are nonedematous and both pedal pulses are present Neurologic exam is alert and oriented, no focal loss of strength or sensation Skin is without bruises or rashes Psychologically is without concerns for anxiety or depression.. Results & Data Results & Data ([facility]) Vital Signs (Past 12 Hours) Vital Signs Temp Pulse Pulse Resp BP BP Pulse Ox 06/11/21 11:30 97.9 F 85 18 132/62 97 06/11/21 08:00 76 06/11/21 07:30 97.7 F 78 18 136/89 97 06/11/21 05:03 98.1 F 82 18 132/82 97 PG Care Time/CCT Total # of Minutes Spent Total Time Spent with Patient: Total time spent is greater than 50% in coordination of care (as documented) at patient's floor/unit and/or counseling patient: Coding Level of Care Code 32390 Subseq Hosp Care Lvl 3 Diagnoses Right nephrolithiasis N20.0 Sepsis A41.9 Diabetes E11.9 Lactic acid blood increased R79.89 COVID-19 virus infection U07.1 Electrolyte imbalance E87.8 Hypotension I95.9 Hypertension I10 Diarrhea R19.7
[2021-06-11] MEDS: cefTRIAXone SODIUM 2,000 MG in DEXTROSE 5% 50 ML IV SCH (16:24)
[2021-06-11] MEDS: ENOXAPARIN INJ 30 MG/0.3 ML SYR SQ SCH (17:46)
[2021-06-11] MEDS ORDERED: VANCOMYCIN HCL 125 MG/2.5ML SOLN PO SCH (18:00)
[2021-06-11] MEDS ORDERED: RASPBERRY SYRUP 5 ML UDP PO SCH (18:00)
[2021-06-11] MEDS: CHOLESTYRAMINE LIGHT 4 GM PKT PO SCH (22:12)
[2021-06-11] MEDS: DEXTROMETHORPHAN POLYMR COMPLX 30 MG/5 ML UDP PO PRN (23:40)
[2021-06-12 07:15] LABS: Hematocrit (blood only) 38.3 % (37-47); Hemoglobin 12.7 g/dL (12.0-16.0); Mean Corpuscular Hemoglobin 31.4 pg (25-34); Mean Corpuscular Hgb Conc 33.2 g/dL (32-36); Mean Corpuscular Volume 94.8 fL (80-100); Platelet Count 75 K/uL (130-400); RDW Coefficient of Variation 13.9 % (11.5-14.5); RDW Standard Deviation 48.1 fL (36.4-46.3); Red Blood Count 4.04 M/uL (4.2-5.4); White Blood Count 14.99 K/uL (4.8-10.8)
[2021-06-12 07:39] LABS: ALC (manual) 0.94 K/uL (1.2-3.4); ANC (manual) 13.78 K/uL (1.4-6.5); Albumin Globulin Ratio 1.4 (0.9-2); Albumin Level 3.2 gm/dl (3.4-5.0); BUN Creatinine Ratio 18.2 (10-20); Bilirubin,Total 1.1 mg/dl (0.2-1.0); Creatinine Clr Calc Pharmacy 113.4 ml/min; Est GFR (African American) 114.5 ml/min; Est GFR (Non-African American) 98.8 ml/min; Globulin 2.3 gm/dl (2.5-4.0); Lymphocytes # (manual) 0.94 K/uL (1.2-3.4); Lymphocytes % (manual) 6.3 %; Magnesium 1.7 mg/dl (1.7-2.4); Monocytes # (manual) 0.27 K/uL (0.11-0.59); Monocytes % (manual) 1.8 %; Neutrophils # (manual) 13.78 K/uL (1.4-6.5); Neutrophils % (manual) 91.9 %; Potassium 3.4 mmol/L (3.5-5.1); Total Protein 5.5 gm/dl (6.0-8.3)
[2021-06-12] MEDS: SACCHAROMYCES BOULARDII 250 MG CAP PO SCH (08:24)
[2021-06-12] MEDS: LOSARTAN POTASSIUM 25 MG TAB PO SCH (08:24)
[2021-06-12] MEDS: PRAVASTATIN SOD 20 MG TAB PO SCH (08:24)
[2021-06-12] MEDS: ACETAMINOPHEN 500 MG TAB PO SCH (08:24)
[2021-06-12] MEDS: NORMOSOL-R 1,000 ML IV SCH (09:27)
[2021-06-12] MEDS: DEXTROMETHORPHAN POLYMR COMPLX 30 MG/5 ML UDP PO PRN (09:43)
[2021-06-12] MEDS ORDERED: LOPERAMIDE HCL 2 MG CAP PO STA (10:14)
[2021-06-12] MEDS: CHOLESTYRAMINE LIGHT 4 GM PKT PO SCH (11:06)
--- NOTE | 2021-06-12 14:47 | Discharge Summary ---
Date of Service June 12, 2021 Principal Diagnosis sepsis from e coli pyelonephritis, secondary to nephrolithiasis requiring cystoscopy and stent covid positive status without symptoms Discharge Exam The patient appeared well Vital signs as documented. Lungs are clear to auscultation and appear unlabored Cardiac exam, Rhythm is regular.. No murmurs, rubs or gallops. Abdominal exam reveals normal bowel sounds, soft she has some mild right CVA tenderness and back tenderness she thinks if from a bed Extremities are nonedematous and both pedal pulses are normal. Neurologic exam is alert and oriented, no focal loss of strength or sensation Skin is without bruises or rashes Psychologically is without concerns for anxiety or depression. Discharge Data Allergies Allergy/AdvReac Type Severity Reaction Status Date / Time codeine AdvReac Intermediate VOMITING Verified 06/08/21 14:57 hydrocodone AdvReac Unknown NAUSEA Verified 06/08/21 15:04 Consultations 06/08/21 16:16 ED Decision to Admit Stat 06/08/21 16:23 Consult Urology Routine Procedures Performed Operation Date: 06/09/21 09:55 Actual Procedures p Cystoscopy Retrograde Pyelogram, Right Stent Placement - Rivas Rivera MD Ordered Studies 06/08/21 12:53 CT abd pelvis wo con Stat 06/09/21 11:30 FL retrograde includes kub Routine Hospital Course (1) Right nephrolithiasis: Pt taken to OR as progressive sepsis, with right ureteral stent place 06/09/21 blood cultures with rush sensitive E coli, ceftriaxone started 06/08/21 will complete outpt antibiotics for two weeks Cefdinir Repeat cultures on 06/10 negative to date (2) Sepsis: secondary to Pyelonephritis from Gram negative bacteremia from urinary source negative C. difficile with antibiotic associated diarrhea, continuing on antibiotics for E. coli bacteremia repeat white count decreasing (3) Diarrhea: Patient with diarrhea (4) Diabetes: metformin (5) Lactic acid blood increased: resolved (6) COVID-19 virus infection: remains asymptomatic. quizzed for previous illness to see if this is persistently positive and is not Continue airborne isolation Continues without supplemental oxygen required (7) Electrolyte imbalance: replete potassium and magnesium for hypokalemia and hypomagnesemia (8) Hypotension: Secondary to bacteremic sepsis volume resuscitated Eating and drinking well no evidence of peripheral edema (9) Hypertension: Hold patient spironolactone, lisinopril and losartan due to hypotension Total Time Total Time Spent Total Time Spent (In Minutes): It required greater than 30 minutes to prepare this patient for discharge Discharge Plan Discharge Items Patient Disposition: Home - Self-Care Reason For Visit: KIDNEY STONE Discharge Diagnosis: sepsis from urinary source - resolved nephrolithiasis(kidney stone) status post stent placement pyelonephritis secondary to E coli Activity: Per Instructions section Activity Comment: gradually increase exercise and plenty of fluids Non-emergency contact: Primary Care Provider and Urologist Call non-emergency contact if: you have any medication questions, your symptoms worsen and you have a fever Follow-up/Referrals: Shayan Prabhakar DO [Physician] - Mario Mccauley [Primary Care Provider] - Diet: Carb Consistent or DM2 Addtl Attending Provider Instructions: You have been diagnosed with a urinary tract infection associated with your kidney stone. You should be on antibiotics for a total of 14 days. As listed below please call urology for follow-up for attention to the stent that is placed to the tube that drains your kidney to your bladder. You have also been diagnosed with asymptomatic Covid infection at this time. Although you are without symptoms you should still have the appropriate isolation You have been diagnosed with covid infection, it would be recommended that you quarantine yourself for 10 days from your first test or first symptoms, and if at the 10th day you have no symptoms the you can come off quarantine but use common sense precautions. Quarantine means attempting to stay away from people who have not had an active covid infection in the past, and if you have to be around others to wear a mask even if you are indoors, do not share a room to sleep in with others until you are out of quarantine. If you still have symptoms at the 10th day, continue to quarantine until you are symptom free for 48 hours As you are well aware you have diarrhea from your antibiotics please continue to take a probiotic you may consider using fiber agent such as Citrucel Metamucil etc. and you may use occasional Imodium however be cautious with the Imodium because it can cause the other affecting create significant constipation and discomfort. Addtl Under Presser Provider Instructions: The surgery you had was ureteral stent placement. What to expect after your stent placement You may notice small pieces of stone or stone dust/gravel in your urine over the next few days. Drink plenty of liquids to help flush your system. You may notice some blood in your urine. As long as you are able to urinate, this is ok. The urology office will call you to schedule a visit to coordinate definitive stone removal. When to call [facility] [place] Urology at [phone]: Heavy bleeding Stent pain that is not controlled with medicine Problems urinating or inability to urinate Pending Studies at Discharge: Yes (Repeat blood cultures are negative the time of discharge will be watched) Stand-Alone Forms: [facility], Smoking Cessation Medications and DC Order Prescriptions: New cefdinir 300 mg capsule 300 mg PO BID 12 Days Qty: 24 RF: 0 Continued pravastatin 20 mg tablet 20 mg PO DAILY RF: 0 spironolactone 25 mg tablet 25 mg PO DAILY RF: 0 meloxicam [Mobic] 15 mg tablet 15 mg PO DAILY RF: 0 metformin 500 mg tablet 500 mg PO DAILY RF: 0 fexofenadine [Adenike Allergy] 180 mg tablet 180 mg PO DAILY RF: 0 aspirin [Adult Low Dose Aspirin] 81 mg tablet,delayed release (DR/EC) 81 mg PO DAILY RF: 0 magnesium hydroxide 400 mg (170 mg magnesium) tablet,chewable 400 mg PO DAILY RF: 0 Ultra CoQ10 75 mg capsule 75 mg PO DAILY RF: 0 famciclovir 250 mg tablet 250 mg PO BID RF: 0 losartan 25 mg tablet 25 mg PO DAILY RF: 0 lisinopril 2.5 mg tablet 2.5 mg PO DAILY RF: 0 cholecalciferol (vitamin D3) [Vitamin D3] 25 mcg (1,000 unit) Capsule 25 mcg PO DAILY RF: 0 Discharge Orders: Discharge Order (Routine); Ordered 06/12/21 Ordered By: Jt Ludwig Admission Data Admit Date/Time: 06/08/21 16:56 Attending Provider: Jt Ludwig Admit Provider: Say Mcnamara Primary Care Provider: Mario Mccauley Other Providers: Jt Ludwig ; Shayan Prabhakar Coding Level of Care Code D/C DAY MANAGEMENT >30 MINS Diagnoses Right nephrolithiasis N20.0 Sepsis A41.9 Diarrhea R19.7 Diabetes E11.9 Lactic acid blood increased R79.89 COVID-19 virus infection U07.1 Electrolyte imbalance E87.8 Hypotension I95.9 Hypertension I10
[2021-06-12] MEDS ORDERED: LOPERAMIDE HCL 2 MG CAP PO PRN (16:00)
== END 2021-06-12 15:30 | disposition home or self-care (01) | DRG 871 ==
LOC: ED 11:39 → SUATTDRO 16:56 → EDINP 16:56 → 2S 17:08